=== PATIENT | female | born 1935 | race Caucasian/White ===

== ENCOUNTER 2022-07-14 10:15 | Inpatient (IN) ==
--- NOTE | 2022-07-14 10:43 | XRay Report ---
XR chest 1V portable CLINICAL HISTORY: Atypical chest pain. COMPARISON STUDY: Chest radiograph October 30, 2019. FINDINGS: Lung volumes are normal. Lungs are clear. There is no pneumothorax or pleural effusion. Car diac size is normal. Mediastinal contours are normal. There is no evidence for pulmonary edema. IMPRESSION: No acute cardiopulmonary findings. ACT 112: Negative or not required by law. Electronically signed by: Sandeep Cabezas M.D. 07/14/2022 10:41 AM
[2022-07-14 12:08] LABS: Basophils # (auto) 0.01 K/uL (0-0.2); Basophils % (auto) 0.2 %; Eosinophils # (auto) 0.05 K/uL (0-0.50); Eosinophils % (auto) 0.9 %; Hemoglobin 13.1 g/dl (12.0-16.0); Immature Granulocytes # (auto) 0.02 K/uL (0.00-0.02); Immature Granulocytes % (auto) 0.4 %; Lymphocytes # (auto) 1.57 K/uL (1.2-3.4); Lymphocytes % (auto) 27.5 %; Mean Corpuscular Hemoglobin 32.2 pg (25.0-34.0); Mean Corpuscular Hgb Conc 34.5 g/dL (32.0-36.0); Mean Corpuscular Volume 93.4 fL (80.0-100.0); Monocytes # (auto) 0.42 K/uL (0.24-0.82); Monocytes % (auto) 7.4 %; Neutrophils # (auto) 3.64 K/uL (1.4-6.5); Neutrophils % (auto) 63.6 %; Platelet Count 197 K/uL (130-400); RDW Standard Deviation 44.5 fL (36.4-46.3); Red Blood Count 4.07 M/uL (3.93-5.22); White Blood Count 5.71 K/ul (4.8-10.8)
[2022-07-14 12:19] LABS: Partial Thromboplastin Ratio 0.9; Partial Thromboplastin Time 24.9 Seconds (21.0-31.0); Prothrombin Time 10.2 Seconds (9.0-12.0)
--- NOTE | 2022-07-14 12:23 | CT Scan Report ---
CT head/brain wo con CLINICAL HISTORY: headache Technique: Contiguous axial CT images of the head were acquired from the base of the skull to the [place] matthew without intravenous contrast administration. Images were viewed in brain, subdural and bone [facility]. Automated dose lowering techniques and/or adjustment according to patient size were utilized for this exam. Comparison: None available at the time of this dictation. Findings: The ventricles, basal cisterns, and cerebral sulci are normal. There is no acute intracranial hemorrh age or evidence of acute territorial infarction. Neither mass effect, shift of the midline structures , nor abnormal extra-axial fluid collections are shown. There is opacification of some right mastoid air cells. The sinuses are clear. The orbits appear norm al. There are no acute fractures of the calvaria or scalp swelling. Impression: No acute intracranial hemorrhage, no evidence of acute territorial infarction or other acute intracra nial disease process. ACT 112: Negative or not required by law. Electronically signed by: Isaías De Anda M.D. 07/14/2022 12:22 PM
[2022-07-14] MEDS ORDERED: LABETALOL HCL IV 5 MG/ML 20ML IV STA ×2 (12:29→13:37)
--- NOTE | 2022-07-14 12:35 | Emergency Department Note ---
Impression & Plan Hypertensive emergency, Lacunar stroke, Carotid stenosis, right, Cerebrovascular disease ED Provider Note NAME: JUDE PATEL AGE: 86 SEX: F : 1935 ARRIVES VIA: Walk-In INFORMANT: Patient, the patient's family member ED PROVIDER(S): Rosendo Lawson DO CHIEF COMPLAINT: Headache HPI: The patient is an 86-year-old female who presented to the emergency department at the request of her primary care physician for an evaluation of headache and dizziness. The patient states she started noticing dizziness and near syncope at the beginning of the week. She states around Sunday she started having the symptoms. She is also noticed very severe headache. She describes the headache as a frontal as well as an occipital headache. The patient denies having any fever. She said no trauma. She denies having any neck pain. ROS: See above HPI for pertinent positives & negatives. A total of 10 systems reviewed and were otherwise negative. PAST MEDICAL HISTORY: See Below PAST SURGICAL HISTORY: See Below FAMILY HISTORY: See Below SOCIAL HISTORY: See Below HOME MEDICATIONS: See Below ALLERGIES: See Below VITALS: See Below PHYSICAL EXAMINATION: GENERAL: Patient is awake alert in no acute distress patient is resting comfortably and showing no signs of anxiety EYES: The conjunctivae are clear. The pupils are round and reactive. EARS, NOSE, MOUTH AND THROAT: The nose is without any evidence of any deformity. NECK: The neck is nontender and supple. RESPIRATORY: Normal respiratory effort is noted there is no evidence of wheezing rhonchi or rales CARDIOVASCULAR: Regular rate and rhythm noted there no murmurs rubs or gallops normal S1 normal S2. GASTROINTESTINAL: The abdomen is soft. Abdomen is nontender. MUSCULOSKELETAL/EXTREMITIES: There is no evidence of gross deformity full range of motion is noted in the hips and shoulders. SKIN: There is no obvious evidence of any rash. There are no petechiae, pallor or cyanosis noted. NEUROLOGIC: Patient is awake alert and oriented x3. Strength is symmetric. Patient is able to hold each leg off the bed for 5 seconds. MEDICAL DECISION MAKING: The patient is an 86-year-old female who presented to the emergency department for an evaluation of strokelike symptoms and headache. The patient's had ongoi ng symptoms since the beginning the week. She had no focal neurologic deficits but she did complain of fogginess and not feeling well. The patient's blood pressure was treated in the emergency department with IV antihypertensives. She was reevaluated multiple times. I discussed the patient's laboratory and radiographic studies with her. She was found to have significant cerebrovascular disease. There is an area that could be consistent with vertebral artery dissection. Given the amount of cerebral vascular disease I do not feel the patient would be a good candidate for outpatient management. For this reason I discussed her case with the on-call [facility]. They have agreed to evaluate the patient in the emergency department for further management and disposition. Triage Nursing notes reviewed. Prior medical records reviewed Vital Signs: reviewed and remarkable for elevated blood pressure. Differential diagnosis: Benign positional vertigo, dehydration, hypovolemia, anemia, tumor, infection, hypoglycemia, electrolyte abnormalities, cardiac sources, intracerebral event, toxicologic, neurologic, as well as other pathologies. ER treatment provided: See below Diagnostics interpreted by me: ECG: EKG was obtained in the emergency department. My interpretation is normal sinus rhythm at 74 bpm. Left bundle branch block pattern was noted. There were no PVCs. This was compared to a tracing from October 30, 2019. No changes were noted. Cardiac Monitoring: An order was placed for continuous cardiac monitoring. The monitor shows a rate of 65 bpm with sinus rhythm. Laboratory studies: As stated above and show below. Imaging studies: See below. Radiographic imaging was reviewed by myself Consultation(s): I discussed this case with Sadia who is on-call for the [facility]. They are requesting that I discussed the case with neurology. I discussed this case with Dr. Dexter who is on-call for neurology. He does recommend further inpatient management. ED COURSE: Procedures: none Critical Care: I have personally spent greater than 45 minutes of critical care time in the direct management of this patient. This includes bedside care, interpretation of diagnostic studies, and testing, discussion with consultants, patient, and family members, and other required patient management activities. This 45 minutes is in excess of all separately billable procedures. Past Med/Surg History Medical History Hyperlipidemia Hypertension Macular degeneration Migraine Osteoarthritis Trigeminal neuralgia Surgical History History of cataract surgery RT History of colonoscopy History of hysterectomy History of tooth extraction Family History Mother Family history of diabetes mellitus Brother Family history of diabetes mellitus Family hx colonic polyps Social History Smoking Status: Never smoker Cigarettes Per Day: QUIT IN "MY 40'S"; Second Hand Exposure: No; Hx Alcohol Use: Yes Alcohol type: wine Hx Substance Use: No Preferred Language: Montserratian Communication Ability: Effective Manager Managing Required: No Beliefs That Will Affect Care: None Current Living Situation: Spouse Feels Safe at Home: Yes Assistive Devices: Cane and Glasses Allergies Allergies Allergy/AdvReac Type Severity Reaction Status Date / Time amoxicillin [From Augmentin] Allergy Intermediate HIVES/PASSED Verified 07/14/22 14:59 OUT cephalexin [From Keflex] Allergy Intermediate Hives Verified 07/14/22 14:59 clavulanic acid Allergy Intermediate HIVES/PASSED Verified 07/14/22 14:59 [From Augmentin] OUT Penicillins Allergy Intermediate Hives Verified 07/14/22 14:59 Home Meds Home Medications Medication Instructions Recorded Confirmed carbamazepine 200 mg tablet 200 mg PO BID 04/15/18 07/14/22 fluticasone propionate 50 2 spray intranasal DAILY PRN 04/15/18 07/14/22 mcg/actuation nasal Congestion spray,suspension (Flonase Allergy Relief) losartan 50 mg tablet 50 mg PO HS 07/14/22 07/14/22 Results & Data (ED) Vital Signs Vital Signs - 24 hr 07/14/22 10:18 07/14/22 12:26 07/14/22 12:26 Temperature 36.9 C Temperature Source Oral Pulse Rate 86 84 Pulse Rate [Apical] 87 Pulse Rate from SpO2 Sensor Pulse Rhythm Regular Pulse Rhythm [Apical] Regular Respiratory Rate 18 16 16 Respiratory Effort / Characteristics Non-Labored Spontaneous Respiratory Depth Normal Respiratory Pattern Regular Blood Pressure 190/108 H Blood Pressure [Right Arm] 242/103 H Blood Pressure Mean 135 Blood Pressure Mean [Right Arm] 149 Pulse Oximetry 95 98 96 Oxygen Delivery Method Room Air Room Air Room Air Sepsis Recent Fever Within 48 Hours No Sepsis New/Unexplained Change in Mental Status No Sepsis Action Taken by Nursing No Action Required 07/14/22 12:49 07/14/22 12:40 07/14/22 13:02 Temperature Temperature Source Pulse Rate 70 74 Pulse Rate [Apical] Pulse Rate from SpO2 Sensor 71 Pulse Rhythm Pulse Rhythm [Apical] Respiratory Rate 17 16 Respiratory Effort / Characteristics Respiratory Depth Respiratory Pattern Blood Pressure Blood Pressure [Right Arm] 228/86 H Blood Pressure Mean Blood Pressure Mean [Right Arm] 133 Pulse Oximetry 97 Oxygen Delivery Method Room Air Sepsis Recent Fever Within 48 Hours Sepsis New/Unexplained Change in Mental Status Sepsis Action Taken by Nursing 07/14/22 13:15 07/14/22 13:15 07/14/22 13:30 Temperature Temperature Source Pulse Rate 70 Pulse Rate [Apical] Pulse Rate from SpO2 Sensor 70 Pulse Rhythm Pulse Rhythm [Apical] Respiratory Rate 15 Respiratory Effort / Characteristics Respiratory Depth Respiratory Pattern Blood Pressure 210/103 H 208/94 H Blood Pressure [Right Arm] Blood Pressure Mean 138 132 Blood Pressure Mean [Right Arm] Pulse Oximetry 91 Oxygen Delivery Method Sepsis Recent Fever Within 48 Hours Sepsis New/Unexplained Change in Mental Status Sepsis Action Taken by Nursing 07/14/22 13:30 07/14/22 14:28 07/14/22 14:30 Temperature Temperature Source Pulse Rate 65 67 Pulse Rate [Apical] Pulse Rate from SpO2 Sensor 66 Pulse Rhythm Pulse Rhythm [Apical] Respiratory Rate 26 H Respiratory Effort / Characteristics Respiratory Depth Respiratory Pattern Blood Pressure 219/93 H Blood Pressure [Right Arm] Blood Pressure Mean 135 Blood Pressure Mean [Right Arm] Pulse Oximetry 93 Oxygen Delivery Method Sepsis Recent Fever Within 48 Hours Sepsis New/Unexplained Change in Mental Status Sepsis Action Taken by Nursing 07/14/22 14:30 07/14/22 15:00 07/14/22 15:04 Temperature Temperature Source Pulse Rate 67 65 Pulse Rate [Apical] Pulse Rate from SpO2 Sensor Pulse Rhythm Pulse Rhythm [Apical] Respiratory Rate 16 21 Respiratory Effort / Characteristics Respiratory Depth Respiratory Pattern Blood Pressure 213/92 H Blood Pressure [Right Arm] Blood Pressure Mean 132 Blood Pressure Mean [Right Arm] Pulse Oximetry Oxygen Delivery Method Sepsis Recent Fever Within 48 Hours Sepsis New/Unexplained Change in Mental Status Sepsis Action Taken by Nursing 07/14/22 15:04 Temperature Temperature Source Pulse Rate 65 Pulse Rate [Apical] Pulse Rate from SpO2 Sensor Pulse Rhythm Pulse Rhythm [Apical] Respiratory Rate 22 Respiratory Effort / Characteristics Respiratory Depth Respiratory Pattern Blood Pressure Blood Pressure [Right Arm] Blood Pressure Mean Blood Pressure Mean [Right Arm] Pulse Oximetry Oxygen Delivery Method Sepsis Recent Fever Within 48 Hours Sepsis New/Unexplained Change in Mental Status Sepsis Action Taken by [facility] Medications Current Medication List: was personally reviewed by me Laboratory Data Attestation: I reviewed the patient's lab results. 07/14/22 11:51 07/14/22 11:51 Lab Results 07/14/22 07/14/22 07/14/22 Range/Units 11:51 11:51 11:51 WBC 5.71 (4.8-10.8) K/ul RBC 4.07 (3.93-5.22) M/uL Hgb 13.1 (12.0-16.0) g/dl Hct 38.0 (34.1-44.9) % MCV 93.4 (80.0-100.0) fL MCH 32.2 (25.0-34.0) pg MCHC 34.5 (32.0-36.0) g/dL RDW Std Deviation 44.5 (36.4-46.3) fL RDW Coeff of Quan 13.0 (11.5-14.5) % Plt Count 197 (130-400) K/uL MPV 9.0 L (9.4-12.3) fL Immature Gran % (Auto) 0.4 % Neut % (Auto) 63.6 % Lymph % (Auto) 27.5 % Jones % (Auto) 7.4 % Eos % (Auto) 0.9 % Baso % (Auto) 0.2 % Neut # (Auto) 3.64 (1.4-6.5) K/uL Lymph # (Auto) 1.57 (1.2-3.4) K/uL Jones # (Auto) 0.42 (0.24-0.82) K/uL Eos # (Auto) 0.05 (0-0.50) K/uL Baso # (Auto) 0.01 (0-0.2) K/uL Immature Gran # (Auto) 0.02 (0.00-0.02) K/uL ESR (0-30) mm/hr PT 10.2 (9.0-12.0) Seconds INR 1.0 (0.9-1.1) APTT 24.9 (21.0-31.0) Seconds PTT Ratio 0.9 Sodium 139 (136-145) mmol/L Potassium 3.8 (3.5-5.1) mmol/L Chloride 103 (98-107) mmol/L Carbon Dioxide 28 (21-32) mmol/L Anion Gap 8 (3-11) BUN 17 (6-23) mg/dl Creatinine 0.74 (0.6-1.2) mg/dl Est Cr Clr Drug Dosing 46.8 ml/min Est GFR ( Amer) 84.4 ml/min Est GFR (Non-Af Amer) 72.8 ml/min BUN/Creatinine Ratio 23.0 H (10-20) Glucose 110 H (70-99(Fasting)) mg/dl Calcium 9.6 (8.5-10.1) mg/dl Magnesium 2.2 (1.7-2.4) mg/dl Total Bilirubin 0.4 (0.2-1.0) mg/dl AST 18 (13-39) U/L ALT 12 (7-52) U/L Alkaline Phosphatase 84 (34-104) U/L Troponin I High Sens 5.9 (0-14) pg/ml C-Reactive Protein (0-0.5) mg/dl Total Protein 7.3 (6.0-8.3) gm/dl Albumin 4.4 (3.4-5.0) gm/dl Globulin 2.9 (2.5-4.0) gm/dl Albumin/Globulin Ratio 1.5 (0.9-2) TSH (0.300-4.500) uIu/ml Urine Color Urine Appearance (Clear) Urine pH (4.5-7.5) Ur Specific [place] (1.000-1.030) Urine Protein (Negative) Urine Glucose (UA) (Negative) Urine Ketones (Negative) Urine Blood (Negative) Urine Nitrite (Negative) Urine Bilirubin (Negative) Urine Urobilinogen (Negative) Ur Leukocyte Esterase (Negative) SARS-CoV-2, RNA, NAAT (NEGATIVE) 07/14/22 07/14/22 07/14/22 Range/Units 11:51 11:51 11:51 WBC (4.8-10.8) K/ul RBC (3.93-5.22) M/uL Hgb (12.0-16.0) g/dl Hct (34.1-44.9) % MCV (80.0-100.0) fL MCH (25.0-34.0) pg MCHC (32.0-36.0) g/dL RDW Std Deviation (36.4-46.3) fL RDW Coeff of Quan (11.5-14.5) % Plt Count (130-400) K/uL MPV (9.4-12.3) fL Immature Gran % (Auto) % Neut % (Auto) % Lymph % (Auto) % Jones % (Auto) % Eos % (Auto) % Baso % (Auto) % Neut # (Auto) (1.4-6.5) K/uL Lymph # (Auto) (1.2-3.4) K/uL Jones # (Auto) (0.24-0.82) K/uL Eos # (Auto) (0-0.50) K/uL Baso # (Auto) (0-0.2) K/uL Immature Gran # (Auto) (0.00-0.02) K/uL ESR 18 (0-30) mm/hr PT (9.0-12.0) Seconds INR (0.9-1.1) APTT (21.0-31.0) Seconds PTT Ratio Sodium (136-145) mmol/L Potassium (3.5-5.1) mmol/L Chloride (98-107) mmol/L Carbon Dioxide (21-32) mmol/L Anion Gap (3-11) BUN (6-23) mg/dl Creatinine (0.6-1.2) mg/dl Est Cr Clr Drug Dosing ml/min Est GFR ( Amer) ml/min Est GFR (Non-Af Amer) ml/min BUN/Creatinine Ratio (10-20) Glucose (70-99(Fasting)) mg/dl Calcium (8.5-10.1) mg/dl Magnesium (1.7-2.4) mg/dl Total Bilirubin (0.2-1.0) mg/dl AST (13-39) U/L ALT (7-52) U/L Alkaline Phosphatase (34-104) U/L Troponin I High Sens (0-14) pg/ml C-Reactive Protein < 0.50 (0-0.5) mg/dl Total Protein (6.0-8.3) gm/dl Albumin (3.4-5.0) gm/dl Globulin (2.5-4.0) gm/dl Albumin/Globulin Ratio (0.9-2) TSH 1.746 (0.300-4.500) uIu/ml Urine Color Urine Appearance (Clear) Urine pH (4.5-7.5) Ur Specific [place] (1.000-1.030) Urine Protein (Negative) Urine Glucose (UA) (Negative) Urine Ketones (Negative) Urine Blood (Negative) Urine Nitrite (Negative) Urine Bilirubin (Negative) Urine Urobilinogen (Negative) Ur Leukocyte Esterase (Negative) SARS-CoV-2, RNA, NAAT (NEGATIVE) 07/14/22 07/14/22 Range/Units 14:20 Unknown WBC (4.8-10.8) K/ul RBC (3.93-5.22) M/uL Hgb (12.0-16.0) g/dl Hct (34.1-44.9) % MCV (80.0-100.0) fL MCH (25.0-34.0) pg MCHC (32.0-36.0) g/dL RDW Std Deviation (36.4-46.3) fL RDW Coeff of Quan (11.5-14.5) % Plt Count (130-400) K/uL MPV (9.4-12.3) fL Immature Gran % (Auto) % Neut % (Auto) % Lymph % (Auto) % Jones % (Auto) % Eos % (Auto) % Baso % (Auto) % Neut # (Auto) (1.4-6.5) K/uL Lymph # (Auto) (1.2-3.4) K/uL Jones # (Auto) (0.24-0.82) K/uL Eos # (Auto) (0-0.50) K/uL Baso # (Auto) (0-0.2) K/uL Immature Gran # (Auto) (0.00-0.02) K/uL ESR (0-30) mm/hr PT (9.0-12.0) Seconds INR (0.9-1.1) APTT (21.0-31.0) Seconds PTT Ratio Sodium (136-145) mmol/L Potassium (3.5-5.1) mmol/L Chloride (98-107) mmol/L Carbon Dioxide (21-32) mmol/L Anion Gap (3-11) BUN (6-23) mg/dl Creatinine (0.6-1.2) mg/dl Est Cr Clr Drug Dosing ml/min Est GFR ( Amer) ml/min Est GFR (Non-Af Amer) ml/min BUN/Creatinine Ratio (10-20) Glucose (70-99(Fasting)) mg/dl Calcium (8.5-10.1) mg/dl Magnesium (1.7-2.4) mg/dl Total Bilirubin (0.2-1.0) mg/dl AST (13-39) U/L ALT (7-52) U/L Alkaline Phosphatase (34-104) U/L Troponin I High Sens (0-14) pg/ml C-Reactive Protein (0-0.5) mg/dl Total Protein (6.0-8.3) gm/dl Albumin (3.4-5.0) gm/dl Globulin (2.5-4.0) gm/dl Albumin/Globulin Ratio (0.9-2) TSH (0.300-4.500) uIu/ml Urine Color Yellow Urine Appearance Clear (Clear) Urine pH 7.0 (4.5-7.5) Ur Specific [place] 1.036 H (1.000-1.030) Urine Protein Negative (Negative) Urine Glucose (UA) Negative (Negative) Urine Ketones Negative (Negative) Urine Blood Negative (Negative) Urine Nitrite Negative (Negative) Urine Bilirubin Negative (Negative) Urine Urobilinogen Negative (Negative) Ur Leukocyte Esterase Negative (Negative) SARS-CoV-2, RNA, NAAT NEGATIVE (NEGATIVE) Administered Medications Discontinued Medications Gadobutrol (Gadobutrol 65ml Vial) 6 ml IV ONCE ONE Stop: 07/14/22 16:00 Last Admin: 07/14/22 16:00 Dose: 6 ml Documented By: DARI Hydralazine HCl (Hydralazine Hcl 20 Mg/Ml Vial) 10 mg IV NOW STA Stop: 07/14/22 14:58 Last Admin: 07/14/22 15:20 Dose: 10 mg Documented By: ALEXANDRO Ioversol (Optiray 320 500ml) 115 ml IV ONCE ONE Stop: 07/14/22 12:56 Last Admin: 07/14/22 12:58 Dose: 115 ml Documented By: INDIO Labetalol HCl (Labetalol Hcl Iv 5 Mg/Ml 20ml) 10 mg IV NOW STA Stop: 07/14/22 12:30 Last Admin: 07/14/22 12:47 Dose: 10 mg Documented By: [id number] Co-signed By: GRAHAM Labetalol HCl (Labetalol Hcl Iv 5 Mg/Ml 20ml) 10 mg IV NOW STA Stop: 07/14/22 13:38 Last Admin: 07/14/22 13:45 Dose: 10 mg Documented By: [id number] Co-signed By: MOISES Losartan Potassium (Losartan Potassium 50 Mg Tab) 50 mg PO ONE ONE Stop: 07/14/22 14:59 Last Admin: 07/14/22 15:20 Dose: 50 mg Documented By: KN Imaging Data Radiologist's Impression: Chest X-Ray 07/14/22 10:29 XR chest 1V portable CLINICAL HISTORY: Atypical chest pain. COMPARISON STUDY: Chest radiograph October 30, 2019. FINDINGS: Lung volumes are normal. Lungs are clear. There is no pneumothorax or pleural effusion. Cardiac size is normal. Mediastinal contours are normal. There is no evidence for pulmonary edema. IMPRESSION: No acute cardiopulmonary findings. ACT 112: Negative or not required by law. Electronically signed by: Sandeep Cabezas M.D. 07/14/2022 10:[address] 07/14/22 10:29 CT head/brain wo con CLINICAL HISTORY: headache Technique: Contiguous axial CT images of the head were acquired from the base of the skull to the vertex without intravenous contrast administration. Images were viewed in brain, subdural and bone windows. Automated dose lowering techniques and/or adjustment according to patient size were utilized for this exam. Comparison: None available at the time of this dictation. Findings: The ventricles, basal cisterns, and cerebral sulci are normal. There is no acute intracranial hemorrhage or evidence of acute territorial infarction. Neither mass effect, shift of the midline structures, nor abnormal extra-axial fluid collections are shown. There is opacification of some right mastoid air cells. The sinuses are clear. The orbits appear normal. There are no acute fractures of the calvaria or scalp swelling. Impression: No acute intracranial hemorrhage, no evidence of acute territorial infarction or other acute intracranial disease process. ACT 112: Negative or not required by law. Electronically signed by: Isaías De Anda M.D. 07/14/2022 12:22 PM Head CTA 07/14/22 12:29 CT angio neck with con, CT angio head w con CLINICAL HISTORY: 86 years-old Female with Strokelike symptoms. Acute headache with strokelike symptoms COMPARISON STUDY: Head CT of same day TECHNIQUE: Following the IV administration of 115 mL of Optiray, CT angiogram of the head and neck was performed from the aortic arch to the skull apex. Images are reviewed in the axial, sagittal, and coronal planes. 3-D MIPS images are created and assessed. IV contrast was administered without complication. All measurements were calculated based on NASCET criteria. A dose lowering technique was utilized adhering to the principles of ALARA. CT DOSE: 375.06 mGy.cm FINDINGS: Involutional changes with chronic microvascular ischemic disease. Subcentimeter hypodense focus of the right caudate nucleus. Senescent calcifications of the basal ganglia. There are at least 2 ill-defined hypodense areas noted within the left cerebellar hemisphere measuring up to 1.4 cm. Moderate sized right mastoid effusion. Left mastoid air cells and paranasal sinuses are generally clear. Hyperostosis frontalis interna. Prior bilateral lens repair. When apices are clear without pneumothorax. Subcentimeter thyroid nodules and calcifications. Unremarkable soft tissues. Multilevel degenerative changes of the cervical spine. Moderate atherosclerosis of the imaged thoracic aorta. Patency of the nominate and imaged subclavian arteries. Atherosclerosis of the common carotid arteries which are patent. Mild to moderate atherosclerotic plaque of the left carotid bulb and proximal left ICA resulting in less than 50% stenosis. Moderate to extensive mixed plaque of the right carotid bulb and proximal right ICA results in approximately 75% stenosis. The internal carotid arteries are otherwise patent. Atherosclerotic plaque cavernous, clinoid and supraclinoid segments of the internal carotid arteries results in narrowing of to 50%. Mild to moderate multifocal stenosis throughout the anterior and middle cerebral arteries. Codominant vertebral arteries. Multifocal luminal narrowing involving the V1 and V2 segments of the vertebral arteries measures up to approximately 50% irregularity with high-grade stenosis involves the distal V2 and V3 segments of the left vertebral artery with occlusion involving the distal V3 and V4 segments. There is minimal reconstitution of flow noted within the left PICA. High-grade stenosis of the distal V4 segment with multifocal high-grade stenosis of the basilar artery. Multifocal luminal narrowing of the basilar arteries is predominantly mild to moderate. Cerebral venous sinuses appear patent. There is no abnormal intracranial enhancement identified. IMPRESSION: 1. Small age-indeterminate lacunar infarcts of the left cerebellar hemisphere measure up to approximately 1.4 cm. Additional age-indeterminate lacunar infarct of the right caudate nucleus, favored to be chronic. 2. Age-indeterminate occlusion of the distal left vertebral artery with areas of reconstitution noted within the left PICA. Findings are likely secondary to athe rosclerotic vascular disease. An underlying dissection would be difficult to exclude. 3. 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 4. High-grade stenosis within the proximal right ICA. 5. Mild to moderate stenosis throughout the middle and posterior cerebral arteries. ACT 112: Negative or not required by law. The above report was generated using voice recognition software. It may contain grammatical, syntax or spelling errors. Electronically signed by: Aiden Godinez M.D. 07/14/2022 1:21 PM Neck CTA 07/14/22 12:29 CT angio neck with con, CT angio head w con CLINICAL HISTORY: 86 years-old Female with Strokelike symptoms. Acute headache with strokelike symptoms COMPARISON STUDY: Head CT of same day TECHNIQUE: Following the IV administration of 115 mL of Optiray, CT angiogram of the head and neck was performed from the aortic arch to the skull apex. Images are reviewed in the axial, sagittal, and coronal planes. 3-D MIPS images are created and assessed. IV contrast was administered without complication. All measurements were calculated based on NASCET criteria. A dose lowering technique was utilized adhering to the principles of ALARA. CT DOSE: 375.06 mGy.cm FINDINGS: Involutional changes with chronic microvascular ischemic disease. Subcentimeter hypodense focus of the right caudate nucleus. Senescent calcifications of the basal ganglia. There are at least 2 ill-defined hypodense areas noted within the left cerebellar hemisphere measuring up to 1.4 cm. Moderate sized right mastoid effusion. Left mastoid air cells and paranasal sinuses are generally clear. Hyperostosis frontalis interna. Prior bilateral lens repair. When apices are clear without pneumothorax. Subcentimeter thyroid nodules and calcifications. Unremarkable soft tissues. Multilevel degenerative changes of the cervical spine. Moderate atherosclerosis of the imaged thoracic aorta. Patency of the nominate and imaged subclavian arteries. Atherosclerosis of the common carotid arteries which are patent. Mild to moderate atherosclerotic plaque of the left carotid bulb and proximal left ICA resulting in less than 50% stenosis. Moderate to extensive mixed plaque of the right carotid bulb and proximal right ICA results in approximately 75% stenosis. The internal carotid arteries are otherwise pat ent. Atherosclerotic plaque cavernous, clinoid and supraclinoid segments of the internal carotid arteries results in narrowing of to 50%. Mild to moderate multifocal stenosis throughout the anterior and middle cerebral arteries. Codominant vertebral arteries. Multifocal luminal narrowing involving the V1 and V2 segments of the vertebral arteries measures up to approximately 50% irregularity with high-grade stenosis involves the distal V2 and V3 segments of the left vertebral artery with occlusion involving the distal V3 and V4 segments. There is minimal reconstitution of flow noted within the left PICA. High-grade stenosis of the distal V4 segment with multifocal high-grade stenosis of the basilar artery. Multifocal luminal narrowing of the basilar arteries is predominantly mild to moderate. Cerebral venous sinuses appear patent. There is no abnormal intracranial enhancement identified. IMPRESSION: 1. Small age-indeterminate lacunar infarcts of the left cerebellar hemisphere measure up to approximately 1.4 cm. Additional age-indeterminate lacunar infarct of the right caudate nucleus, favored to be chronic. 2. Age-indeterminate occlusion of the distal left vertebral artery with areas of reconstitution noted within the left PICA. Findings are likely secondary to atherosclerotic vascular disease. An underlying dissection would be difficult to exclude. 3. 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 4. High-grade stenosis within the proximal right ICA. 5. Mild to moderate stenosis throughout the middle and posterior cerebral arteries. ACT 112: Negative or not required by law. The above report was generated using voice recognition software. It may contain grammatical, syntax or spelling errors. Electronically signed by: Aiden Godinez M.D. 07/14/2022 1:21 PM Discharge Plan Visit Data Chief Complaint: Referred by Doctor Stated Complaint: headache, dizzy, tia symptoms, referd by dr ED Provider: Rosendo Lawson Discharge Problem: Hypertensive emergency, Lacunar stroke, Carotid stenosis, right, Cerebrovascular disease Patient Disposition: Being Evaluated by Hospitalist Forms Stand Alone Forms: My [facility] [place] Prescriptions Prescriptions: No Action carbamazepine 200 mg Tablet 200 mg PO BID Rx Instructions: PER EXT MED HX TID, PER PT "ONLY BID". fluticasone propionate [Flonase Allergy Relief] 50 mcg/actuation [place],Suspension 2 spray INTRANASAL DAILY PRN (Reason: Congestion) losartan 50 mg tablet 50 mg PO HS Referrals Referrals: Eddi Swan MD [Physician] -
[2022-07-14 12:38] LABS: Albumin Globulin Ratio 1.5 (0.9-2); Albumin Level 4.4 gm/dl (3.4-5.0); Bilirubin,Total 0.4 mg/dl (0.2-1.0); Calcium 9.6 mg/dl (8.5-10.1); Creatinine Clr Calc Pharmacy 46.8 ml/min; Est GFR (African American) 84.4 ml/min; Est GFR (Non-African American) 72.8 ml/min; Globulin 2.9 gm/dl (2.5-4.0); Magnesium 2.2 mg/dl (1.7-2.4); Potassium 3.8 mmol/L (3.5-5.1); Total Protein 7.3 gm/dl (6.0-8.3)
[2022-07-14 12:54] LABS: Troponin I High Sensitivity 5.9 pg/ml (0-14)
[2022-07-14] MEDS ORDERED: OPTIRAY 320 500ml IV ONE (12:55)
--- NOTE | 2022-07-14 13:22 | CT Scan Report ---
CT angio neck with con, CT angio head w con CLINICAL HISTORY: 86 years-old Female with Strokelike symptoms. Acute headache with strokelike sym ptoms COMPARISON STUDY: Head CT of same day TECHNIQUE: Following the IV administration of 115 mL of Optiray, CT angiogram of the head and neck wa s performed from the aortic arch to the skull apex. Images are reviewed in the axial, sagittal, and c oronal planes. 3-D MIPS images are created and assessed. IV contrast was administered without complic ation. All measurements were calculated based on NASCET criteria. A dose lowering technique was util ized adhering to the principles of ALARA. CT DOSE: 375.06 mGy.cm FINDINGS: Involutional changes with chronic microvascular ischemic disease. Subcentimeter hypodense focus of th e right caudate nucleus. Senescent calcifications of the basal ganglia. There are at least 2 ill-defi fawn hypodense areas noted within the left cerebellar hemisphere measuring up to 1.4 cm. Moderate sized right mastoid effusion. Left mastoid air cells and paranasal sinuses are generally pat ar. Hyperostosis frontalis interna. Prior bilateral lens repair. When apices are clear without pneumo thorax. Subcentimeter thyroid nodules and calcifications. Unremarkable soft tissues. Multilevel degen erative changes of the cervical spine. Moderate atherosclerosis of the imaged thoracic aorta. Patency of the nominate and imaged subclavian arteries. Atherosclerosis of the common carotid arteries which are patent. Mild to moderate atheroscl erotic plaque of the left carotid bulb and proximal left ICA resulting in less than 50% stenosis. Mod erate to extensive mixed plaque of the right carotid bulb and proximal right ICA results in approxima tely 75% stenosis. The internal carotid arteries are otherwise patent. Atherosclerotic plaque caverno us, clinoid and supraclinoid segments of the internal carotid arteries results in narrowing of to 50% . Mild to moderate multifocal stenosis throughout the anterior and middle cerebral arteries. Codomina nt vertebral arteries. Multifocal luminal narrowing involving the V1 and V2 segments of the vertebral arteries measures up to approximately 50% irregularity with high-grade stenosis involves the distal V2 and V3 segments of the left vertebral artery with occlusion involving the distal V3 and V4 segment s. There is minimal reconstitution of flow noted within the left PICA. High-grade stenosis of the dis ninfa V4 segment with multifocal high-grade stenosis of the basilar artery. Multifocal luminal narrowin g of the basilar arteries is predominantly mild to moderate. Cerebral venous sinuses appear patent. T here is no abnormal intracranial enhancement identified. IMPRESSION: 1. Small age-indeterminate lacunar infarcts of the left cerebellar hemisphere measure up to approxima tely 1.4 cm. Additional age-indeterminate lacunar infarct of the right caudate nucleus, favored to be chronic. 2. Age-indeterminate occlusion of the distal left vertebral artery with areas of reconstitution noted within the left PICA. Findings are likely secondary to atherosclerotic vascular disease. An underlyi ng dissection would be difficult to exclude. 3. 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 4. High-grade stenosis within the proximal right ICA. 5. Mild to moderate stenosis throughout the middle and posterior cerebral arteries. ACT 112: Negative or not required by law. The above report was generated using voice recognition software. It may contain grammatical, syntax o r spelling errors. Electronically signed by: Aiden Godinez M.D. 07/14/2022 1:21 PM
--- NOTE | 2022-07-14 14:28 | Electrocardiogram Report ---
Test Reason : Blood Pressure : / mmHG Vent. Rate : 074 BPM Atrial Rate : 074 BPM P-R Int : 168 ms QRS Dur : 140 ms QT Int : 426 ms P-R-T Axes : 062 -40 104 degrees QTc Int : 472 ms Poor data quality, interpretation may be adversely affected Normal sinus rhythm Possible Left atrial enlargement Left axis deviation Left bundle branch block Abnormal ECG When compared with ECG of 30-OCT-2019 13:22, No significant change was found Confirmed by Julian Maloney ([id number]) on 07/14/2022 2:27:50 PM Referred By: Confirmed By:Julian Maloney
[2022-07-14 14:48] LABS: Appearance Urine Clear (Clear); Bilirubin Urine Negative (Negative); Blood Urine Negative (Negative); Color Urine Yellow; Glucose Urine UA Negative (Negative); Ketones Urine Negative (Negative); Leukocyte Esterase Urine Negative (Negative); Nitrite Urine Negative (Negative); Protein Urine Negative (Negative); Specific Gravity Urine 1.036 (1.000-1.030); Urobilinogen Urine Negative (Negative)
[2022-07-14] MEDS ORDERED: hydrALAZINE HCL 20 MG/ML VIAL IV STA ×2 (14:57→16:29)
[2022-07-14] MEDS ORDERED: LOSARTAN POTASSIUM 50 MG TAB PO ONE (14:58)
--- NOTE | 2022-07-14 15:47 | History & Physical Report ---
Date of Service July 14, 2022 Assessment & Plan (1) Hypertensive emergency: (2) Lacunar stroke: (3) Carotid stenosis, right: Plan: Admit to PCU Patient presenting from home with reports of headache, dizziness, nausea, difficulty ambulating x 6 days In the ED, patient was found to be significantly hypertensive with BP 242/103 Patient received labetalol 10 mg IV x 2 doses with minimal improvement. Will give hydralazine 10 mg IV and losartan 50 mg p.o. (patient's home dose) --> some improvement in BP, will give another dose of hydralazine and give amlodipine 5mg now. Resume Losartan 50mg and Amlodipine 5mg tomorrow AM. PRN hydralazine SBP > 195 Head/Neck CTA: 1. Small age-indeterminate lacunar infarcts of the left cerebellar hemisphere measure up to approximately 1.4 cm. Additional age-indeterminate lacunar infarct of the right caudate nucleus, favored to be chronic. 2. Age-indeterminate occlusion of the distal left vertebral artery with areas of reconstitution noted within the left PICA. Findings are likely secondary to atherosclerotic vascular disease. An underlying dissection would be difficult to exclude. 3. 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 4. High-grade stenosis within the proximal right ICA. 5. Mild to moderate stenosis throughout the middle and posterior cerebral arteries. Brain MRI/MRA Echo Neurology consult -Case discussed with Dr. Dexter via tiger text Start Plavix 75mg, ASA 81mg, atorvastatin 40mg Consult vascular re: high grade proximal right ICA stenosis (4) Trigeminal neuralgia: Plan: Continue carbamazepine DVT PROPHYLAXIS SCDs I spent a total of 60 minutes coordinating, documenting, and providing care for this patient excluding time spent in the performance of separately billed services. This included personally reviewing all current laboratories and imaging studies, medication reconciliation, outpatient chart review, and discussion with specialists. History of Present Illness Chief Complaint: Headache, nausea, dizziness, difficulty ambulating Primary Care Provider: Sander Dumont MD 86-year-old female with PMH HTN, dyslipidemia, carotid stenosis, LBBB, trigeminal neuralgia, and other problems listed below who presents to the ED for evaluation of headache, nausea, dizziness, difficulty ambulating. Patient reports that 6 days ago, she was sitting at her computer when she had sudden on set of dizziness and generalized weakness. Patient reports that she went to bed and fell asleep and whenever she woke up the next morning, the dizziness and generalized weakness persisted. The following day, patient also reports she developed a severe frontal headache that radiated around to the back of her head. She also has had associated nausea. Patient also reports some difficulty walking however no falls. Patient has been taking intermittent Advil for the headache. This morning, she took 2 full dose aspirin. Patient denies unilateral weakness, numbness, tingling. No facial droop, slurred speech, difficulty swallowing. Denies double and blurred vision. No chest pain or shortness of breath. Denies syncopal event. No other recent illnesses, fevers, chills. No abdominal pain, vomiting, diarrhea. Denies urinary symptoms. In the ED, patient is found to be significantly hypertensive with BP 242/103. Head and neck CTA shows small age-indeterminate lacunar infarcts of the left cerebellar hemisphere measure up to approximately 1.4 cm, Age-indeterminate occlusion of the distal left vertebral artery with areas of reconstitution noted within the left PICA. Findings are likely secondary to atherosclerotic vascular disease. An underlying dissection would be difficult to exclude. 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 High-grade stenosis within the proximal right ICA. Mild to moderate stenosis throughout the middle and posterior cerebral arteries. Patient was given IV labetalol 10 mg x 2 doses with minimal improvement in BP. Allergies Allergy/AdvReac Type Severity Reaction Status Date / Time amoxicillin [From Augmentin] Allergy Intermediate HIVES/PASSED Verified 07/14/22 14:59 OUT cephalexin [From Keflex] Allergy Intermediate Hives Verified 07/14/22 14:59 clavulanic acid Allergy Intermediate HIVES/PASSED Verified 07/14/22 14:59 [From Augmentin] OUT Penicillins Allergy Intermediate Hives Verified 07/14/22 14:59 Home Medications Medication Instructions Recorded Confirmed Type carbamazepine 200 mg tablet 200 mg PO BID 04/15/18 07/14/22 History fluticasone propionate 50 2 spray intranasal DAILY PRN 04/15/18 07/14/22 History mcg/actuation nasal Congestion spray,suspension (Flonase Allergy Relief) losartan 50 mg tablet 50 mg PO HS 07/14/22 07/14/22 History Past Med/Surg History Medical History Hyperlipidemia Hypertension Macular degeneration Migraine Osteoarthritis Trigeminal neuralgia Surgical History History of cataract surgery RT History of colonoscopy History of hysterectomy History of tooth extraction Family History Mother Family history of diabetes mellitus Brother Family history of diabetes mellitus Family hx colonic polyps Social History Smoking Status: Never smoker Cigarettes Per Day: QUIT IN "MY 40'S"; Second Hand Exposure: No; Hx Alcohol Use: Yes Alcohol type: wine Hx Substance Use: No Preferred Language: Jordanian Communication Ability: Effective Manager Unit Required: No Beliefs That Will Affect Care: None Current Living Situation: Spouse Feels Safe at Home: Yes Assistive Devices: Cane and Glasses Review of Systems Review of Systems: ROS per HPI, all other systems reviewed and negative Physical Exam Constitutional: WD/WN, vitals as above Eyes: PERRL, conjunctivae normal, anicteric sclerae ENMT: external ear and nose normal, oropharynx normal Respiratory: normal respiratory effort, lungs clear to auscultation Cardiovascular: Rate/Rhythm: regular rate and regular rhythm Vessels: normal peripheral pulses Extremities: no edema Gastrointestinal (Abdomen): normal bowel sounds, soft, nontender, no hepatosplenomegaly Musculoskeletal: no cyanosis or clubbing, extremities motor strength 5/5 Skin: no rashes, warm and dry Neurologic: moves all extremities Speech / Cognition: normal speech Cranial Nerves: PERRL, normal accommodation and EOM intact bilaterally; + abnormal facial strength (mild left mouth droop) Coordination: + abnormal cvpr-lb-newq test (mild ataxia LLE); normal vsamjh-ku-hbrw test Psychiatric: A+Ox3, euthymic affect Results & Data Results & Data ([facility]) Vital Signs (Past 12 Hours) Vital Signs Temp Pulse Pulse Resp BP BP Pulse Ox 07/14/22 13:02 74 16 07/14/22 12:40 70 17 97 07/14/22 12:49 228/86 H 07/14/22 12:26 84 16 96 07/14/22 12:26 87 16 242/103 H 98 07/14/22 10:18 36.9 C 86 18 190/108 H 95 O2 Del Method 07/14/22 13:02 07/14/22 12:40 Room Air 07/14/22 12:49 07/14/22 12:26 Room Air 07/14/22 12:26 Room Air 07/14/22 10:18 Room Air Laboratory Results Short CBC 07/14/22 Range/Units 11:51 WBC 5.71 (4.8-10.8) K/ul Hgb 13.1 (12.0-16.0) g/dl Hct 38.0 (34.1-44.9) % Plt Count 197 (130-400) K/uL BMP 07/14/22 11:51 Sodium 139 Potassium 3.8 Chloride 103 Carbon Dioxide 28 BUN 17 Creatinine 0.74 Glucose 110 H Calcium 9.6 Liver Function 07/14/22 Range/Units 11:51 Total Bilirubin 0.4 (0.2-1.0) mg/dl AST 18 (13-39) U/L ALT 12 (7-52) U/L Alkaline Phosphatase 84 (34-104) U/L Albumin 4.4 (3.4-5.0) gm/dl Urine 07/14/22 Range/Units 14:20 Urine Color Yellow Urine Appearance Clear (Clear) Urine pH 7.0 (4.5-7.5) Ur Specific Hope 1.036 H (1.000-1.030) Urine Protein Negative (Negative) Urine Glucose (UA) Negative (Negative) Diagnostic Findings Chest X-Ray 07/14/22 10:29 XR chest 1V portable CLINICAL HISTORY: Atypical chest pain. COMPARISON STUDY: Chest radiograph October 30, 2019. FINDINGS: Lung volumes are normal. Lungs are clear. There is no pneumothorax or pleural effusion. Cardiac size is normal. Mediastinal contours are normal. There is no evidence for pulmonary edema. IMPRESSION: No acute cardiopulmonary findings. ACT 112: Negative or not required by law. Electronically signed by: Sandeep Cabezas M.D. 07/14/2022 10:[address] 07/14/22 10:29 CT head/brain wo con CLINICAL HISTORY: headache Technique: Contiguous axial CT images of the head were acquired from the base of the skull to the vertex without intravenous contrast administration. Images were viewed in brain, subdural and bone windows. Automated dose lowering techniques and/or adjustment according to patient size were utilized for this exam. Comparison: None available at the time of this dictation. Findings: The ventricles, basal cisterns, and cerebral sulci are normal. There is no acute intracranial hemorrhage or evidence of acute territorial infarction. Neither mass effect, shift of the midline structures, nor abnormal extra-axial fluid collections are shown. There is opacification of some right mastoid air cells. The sinuses are clear. The orbits appear normal. There are no acute fractures of the calvaria or scalp swelling. Impression: No acute intracranial hemorrhage, no evidence of acute territorial infarction or other acute intracranial disease process. ACT 112: Negative or not required by law. Electronically signed by: Isaías De Anda M.D. 07/14/2022 12:22 PM Head CTA 07/14/22 12:29 CT angio neck with con, CT angio head w con CLINICAL HISTORY: 86 years-old Female with Strokelike symptoms. Acute headache with strokelike symptoms COMPARISON STUDY: Head CT of same day TECHNIQUE: Following the IV administration of 115 mL of Optiray, CT angiogram of the head and neck was performed from the aortic arch to the skull apex. Images are reviewed in the axial, sagittal, and coronal planes. 3-D MIPS images are created and assessed. IV contrast was administered without complication. All measurements were calculated based on NASCET criteria. A dose lowering technique was utilized adhering to the principles of ALARA. CT DOSE: 375.06 mGy.cm FINDINGS: Involutional changes with chronic microvascular ischemic disease. Subcentimeter hypodense focus of the right caudate nucleus. Senescent calcifications of the basal ganglia. There are at least 2 ill-defined hypodense areas noted within the left cerebellar hemisphere measuring up to 1.4 cm. Moderate sized right mastoid effusion. Left mastoid air cells and paranasal sinuses are generally clear. Hyperostosis frontalis interna. Prior bilateral lens repair. When apices are clear without pneumothorax. Subcentimeter thyroid nodules and calcifications. Unremarkable soft tissues. Multilevel degenerative changes of the cervical spine. Moderate atherosclerosis of the imaged thoracic aorta. Patency of the nominate and imaged subclavian arteries. Atherosclerosis of the common carotid arteries which are patent. Mild to moderate atherosclerotic plaque of the left carotid bulb and proximal left ICA resulting in less than 50% stenosis. Moderate to extensive mixed plaque of the right carotid bulb and proximal right ICA results in approximately 75% stenosis. The internal carotid arteries are otherwise patent. Atherosclerotic plaque cavernous, clinoid and supraclinoid segments of the internal carotid arteries results in narrowing of to 50%. Mild to moderate multifocal stenosis throughout the anterior and middle cerebral arteries. Codominant vertebral arteries. Multifocal luminal narrowing involving the V1 and V2 segments of the vertebral arteries measures up to approximately 50% irregularity with high-grade stenosis involves the distal V2 and V3 segments of the left vertebral artery with occlusion involving the distal V3 and V4 segments. There is minimal reconstitution of flow noted within the left PICA. High-grade stenosis of the distal V4 segment with multifocal high-grade stenosis of the basilar artery. Multifocal luminal narrowing of the basilar arteries is predominantly mild to moderate. Cerebral venous sinuses appear patent. There is no abnormal intracranial enhancement identified. IMPRESSION: 1. Small age-indeterminate lacunar infarcts of the left cerebellar hemisphere measure up to approximately 1.4 cm. Additional age-indeterminate lacunar infarct of the right caudate nucleus, favored to be chronic. 2. Age-indeterminate occlusion of the distal left vertebral artery with areas of reconstitution noted within the left PICA. Findings are likely secondary to atherosclerotic vascular disease. An underlying dissection would be difficult to exclude. 3. 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 4. High-grade stenosis within the proximal right ICA. 5. Mild to moderate stenosis throughout the middle and posterior cerebral arteries. ACT 112: Negative or not required by law. The above report was generated using voice recognition software. It may contain grammatical, syntax or spelling errors. Electronically signed by: Aiden Godinez M.D. 07/14/2022 1:21 PM Neck CTA 07/14/22 12:29 CT angio neck with con, CT angio head w con CLINICAL HISTORY: 86 years-old Female with Strokelike symptoms. Acute headache with strokelike symptoms COMPARISON STUDY: Head CT of same day TECHNIQUE: Following the IV administration of 115 mL of Optiray, CT angiogram of the head and neck was performed from the aortic arch to the skull apex. Images are reviewed in the axial, sagittal, and coronal planes. 3-D MIPS images are created and assessed. IV contrast was administered without complication. All measurements were calculated based on NASCET criteria. A dose lowering te chnique was utilized adhering to the principles of ALARA. CT DOSE: 375.06 mGy.cm FINDINGS: Involutional changes with chronic microvascular ischemic disease. Subcentimeter hypodense focus of the right caudate nucleus. Senescent calcifications of the basal ganglia. There are at least 2 ill-defined hypodense areas noted within the left cerebellar hemisphere measuring up to 1.4 cm. Moderate sized right mastoid effusion. Left mastoid air cells and paranasal sinuses are generally clear. Hyperostosis frontalis interna. Prior bilateral lens repair. When apices are clear without pneumothorax. Subcentimeter thyroid nodules and calcifications. Unremarkable soft tissues. Multilevel degenerative changes of the cervical spine. Moderate atherosclerosis of the imaged thoracic aorta. Patency of the nominate and imaged subclavian arteries. Atherosclerosis of the common carotid arteries which are patent. Mild to moderate atherosclerotic plaque of the left carotid bulb and proximal left ICA resulting in less than 50% stenosis. Moderate to extensive mixed plaque of the right carotid bulb and proximal right ICA results in approximately 75% stenosis. The internal carotid arteries are otherwise pa tent. Atherosclerotic plaque cavernous, clinoid and supraclinoid segments of the internal carotid arteries results in narrowing of to 50%. Mild to moderate multifocal stenosis throughout the anterior and middle cerebral arteries. Codominant vertebral arteries. Multifocal luminal narrowing involving the V1 and V2 segments of the vertebral arteries measures up to approximately 50% irregularity with high-grade stenosis involves the distal V2 and V3 segments of the left vertebral artery with occlusion involving the distal V3 and V4 segments. There is minimal reconstitution of flow noted within the left PICA. High-grade stenosis of the distal V4 segment with multifocal high-grade stenosis of the basilar artery. Multifocal luminal narrowing of the basilar arteries is predominantly mild to moderate. Cerebral venous sinuses appear patent. There is no abnormal intracranial enhancement identified. IMPRESSION: 1. Small age-indeterminate lacunar infarcts of the left cerebellar hemisphere measure up to approximately 1.4 cm. Additional age-indeterminate lacunar infarct of the right caudate nucleus, favored to be chronic. 2. Age-indeterminate occlusion of the distal left vertebral artery with areas of reconstitution noted within the left PICA. Findings are likely secondary to atherosclerotic vascular disease. An underlying dissection would be difficult to exclude. 3. 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 4. High-grade stenosis within the proximal right ICA. 5. Mild to moderate stenosis throughout the middle and posterior cerebral arteries. ACT 112: Negative or not required by law. The above report was generated using voice recognition software. It may contain grammatical, syntax or spelling errors. Electronically signed by: Aiden Godinez M.D. 07/14/2022 1:21 PM Code Status & VTE Plan Code Status Patient is a full code as per my discussion with her. Supervising Physician Co-Signing Physician Notes Attending addendum: The patient was seen and examined in emergency room in presence of the grandson She was brought in with dizziness and was noted to have very high blood pressure and cerebellar stroke She still complains to have dizziness but denies any other neurological symptoms Complains to have anxiety with generalized shakes at times On examination Lying in bed comfortably Initial blood pressure was more than 210 systolic and during my examination it has come down to 161/68 Otherwise hemodynamically stable Chestclear to auscultate bilaterally HeartS1-S2, regular Abdomenbenign CNSalert, awake and oriented x3. No focal sensory and motor deficit appre ciated Her admission labs, EKG and imaging studies reviewed MRI did not show 1.4 cm left cerebellar infarct with extensive chronic microvascular ischemic disease CTA did not show significant vascular disease as mentioned above Has been started with losartan 50 mg once a day and amlodipine at 5 mg to control blood pressure Neurology has been consulted Vascular surgery evaluation will be done Agree with assessment plan as outlined above by Sadia Carpenter
[2022-07-14] MEDS ORDERED: GADOBUTROL 65ML VIAL IV ONE (15:59)
[2022-07-14] MEDS ORDERED: amLODIPine BESYLATE 5 MG TAB PO ONE (16:29)
--- NOTE | 2022-07-14 16:45 | Magnetic Resonance Report ---
MR brain wo/w con, MR angio head wo con HISTORY: 86 years-old Female CVA acute strokelike symptoms COMPARISON: CT head, CTA head and neck of same day TECHNIQUE: Multiplanar multisequence MRI of the brain was obtained both with and without the use of 6 cc Gadavist. MRA of the brain without use of IV contrast was also obtained utilizing NASCET criteria with MIP reformats. FINDINGS: MRI BRAIN: There are a few small acute infarcts in the left cerebellar hemisphere measuring up to 1.4 cm as desc ribed on the CTA head study of same day. These demonstrate decreased signal on ADC map. No acute or s ubacute territorial infarct. Midline structures appear unremarkable. Degenerative changes of the cerv ical spine. No acute intracranial hemorrhage, midline shift, abnormal extra-axial collection, hydroce phalus or intracranial mass. Involutional changes. Moderate to extensive T2/FLAIR hyperintense foci t hroughout the white matter. Chronic lacunar infarct of the right caudate nuclear head. Cerebral venous sinuses are patent. Occlusion of the distal left vertebral artery with high-grade geronimo nosis of the basilar artery. Prior bilateral lens repair. Bilateral mastoid effusions. No abnormal en hancement. The study is motion degraded. MRA: Imaged distal internal carotid arteries appear patent. The visualized anterior and middle cerebr al arteries appear patent. Occlusion of the distal left vertebral artery with reconstitution of flow within the PICA. Multifocal high-grade stenosis of the basilar artery. Visualized portions of the pos terior cerebral arteries appear patent. IMPRESSION: 1. Confirmation of the small acute left cerebellar infarcts measuring up to approximately 1.4 cm. 2. Motion degradation limits evaluation of the MRA component of the study. The arterial findings are better evaluated on the comparison CTA head and neck studies of same day. 3. Involutional changes with moderate to extensive chronic microvascular ischemic disease. 4. No abnormal enhancement. ACT 112: Negative or not required by law. The above report was generated using voice recognition software. It may contain grammatical, syntax o r spelling errors. Electronically signed by: Aiden Godinez M.D. 07/14/2022 4:43 PM
[2022-07-14] MEDS ORDERED: ONDANSETRON INJ 2 MG/ML 2 ML VIAL ONE (17:36)
[2022-07-14] MEDS: ONDANSETRON INJ 2 MG/ML 2 ML VIAL IV PRN (17:37)
[2022-07-14] MEDS ORDERED: PHARMACIST DISCHARGE MED REC CONSULT PRN (18:45)
[2022-07-14] MEDS ORDERED: hydrALAZINE HCL 20 MG/ML VIAL IV PRN (18:45)
[2022-07-14] MEDS ORDERED: CLOPIDOGREL BISULFATE 75 MG TAB PO ONE (19:15)
[2022-07-14] MEDS: ATORVASTATIN 40 MG TAB PO SCH (19:48)
[2022-07-14] MEDS: carBAMazepine 200 MG TABLET PO SCH (21:14)
[2022-07-14] MEDS: PROMETHAZINE HCL 6.25 MG in SODIUM CHLORIDE 0.9% 50 ML IV PRN (22:16)
[2022-07-15 06:50] LABS: Basophils # (auto) 0.02 K/uL (0-0.2); Basophils % (auto) 0.3 %; Eosinophils # (auto) 0.07 K/uL (0-0.50); Eosinophils % (auto) 1.2 %; Hematocrit (blood only) 35.4 % (34.1-44.9); Hemoglobin 12.2 g/dl (12.0-16.0); Immature Granulocytes # (auto) 0.02 K/uL (0.00-0.02); Immature Granulocytes % (auto) 0.3 %; Lymphocytes # (auto) 1.71 K/uL (1.2-3.4); Lymphocytes % (auto) 29.3 %; Mean Corpuscular Hgb Conc 34.5 g/dL (32.0-36.0); Mean Corpuscular Volume 92.9 fL (80.0-100.0); Mean Platelet Volume 9.3 fL (9.4-12.3); Monocytes # (auto) 0.48 K/uL (0.24-0.82); Monocytes % (auto) 8.2 %; Neutrophils # (auto) 3.53 K/uL (1.4-6.5); Neutrophils % (auto) 60.7 %; Platelet Count 189 K/uL (130-400); RDW Coefficient of Variation 13.2 % (11.5-14.5); Red Blood Count 3.81 M/uL (3.93-5.22); White Blood Count 5.83 K/ul (4.8-10.8)
[2022-07-15 07:20] LABS: BUN Creatinine Ratio 20.8 (10-20); Calcium 9.2 mg/dl (8.5-10.1); Chol HDL Ratio 3.9 (0-5); Creatinine Clr Calc Pharmacy 44.9 ml/min; Est GFR (African American) 80.5 ml/min; Est GFR (Non-African American) 69.4 ml/min; Potassium 4.2 mmol/L (3.5-5.1)
[2022-07-15] MEDS: amLODIPine BESYLATE 5 MG TAB PO SCH (08:03)
[2022-07-15] MEDS: carBAMazepine 200 MG TABLET PO SCH ×2 (08:03→21:46)
[2022-07-15] MEDS: LOSARTAN POTASSIUM 50 MG TAB PO SCH (08:03)
[2022-07-15] MEDS: ASPIRIN 81 MG ECTAB PO SCH (08:03)
--- NOTE | 2022-07-15 08:18 | Neurology Consultation ---
Date of Consultation July 15, 2022 Assessment & Plan (1) Cerebellar stroke: (2) Occlusion of left vertebral artery: (3) Carotid stenosis, right: (4) Basilar artery stenosis: (5) Hypertensive emergency: Plan 86-year-old female with several small acute left cerebellar infarcts occurring in the context of an occluded left vertebral artery with distal reconstitution, hypertensive emergency, and extensive cerebrovascular disease including multifocal high-grade stenoses throughout the basilar artery and a high-grade stenosis (75%) within the proximal right internal carotid artery that would not be related to her current presentation. She does not have any focal deficits on neurological examination, notably, no hemiataxia that would otherwise associate with acute cerebellar infarcts. Stroke risk factors with this patient include hypertension and dyslipidemia. She has not been on a statin. Agree with dual antiplatelet therapy for the time being, daily low-dose aspirin and clopidogrel 75 mg/day. Plan to transition to Plavix monotherapy after 3 weeks. I also agree with the addition of atorvastatin 40 mg/day. Goal LDL less than 100 depending on tolerability. Patient does express some concern regarding potential side effects of statins, in particular memory loss. She does not have significant cognitive impairment at this time. Allow for permissive hypertension, systolic blood pressure goal range 140 to 160 mmHg acutely. Consultation with vascular surgery as ordered. However, I do not think the proximal right internal carotid artery stenosis would require intervention at this time as it would not be related to her left cerebellar stroke. Furthermore , the distal left vertebral artery occlusion and multifocal high-grade stenoses throughout the basilar artery would not be addressed with procedures such as stenting or revascularization surgery. Medical management would be recommended, especially as this patient is clinically stable. Furthermore, I note that an underlying dissection involving the left vertebral artery cannot be completely excluded. However, as above, medical management would be the standard of care for vertebral artery dissections as well. Antiplatelet or anticoagulant therapy are both considered appropriate without clear evidence of superiority of either treatment approach. Given this patient's advanced age and theoretical increased bleeding risk, as well as evidence of extensive cerebrovascular disease including a high-grade right ICA stenosis, I would tend to recommend antiplatelet therapy, over an anticoagulant. As above, per stroke recommendations, would plan for dual antiplatelet therapy with aspirin and Plavix for 3 weeks, followed by transition to Plavix monotherapy. Follow-up with results of echocardiogram. No evidence of atrial fibrillation on ECG. If, however, going forward, patient were to have evidence of atrial fibrillation or compelling evidence of cardioembolic phenomena, would consider utilizing a direct oral anticoagulant such as Eliquis and daily low-dose aspirin, instead of dual antiplatelet therapy (aspirin and Plavix) as above. History of Present Illness Reason for Consultation: CVA Requesting Physician: ISABELL Wen Attending Physician: Saul Carpenter MD History of Present Illness The patient is an 86-year-old female who presented to the emergency department yesterday for further evaluation of headache and dizziness which have been present for about the past week. She complained of a severe occipital frontal headache as well. She does not have any deficits on neurological examination. She was significantly hypertensive and treated. CT angiography of the head and neck revealed a few small age indeterminate lacunar infarcts, left cerebellar hemisphere, right caudate nucleus, and an age-indeterminate occlusion of the distal left vertebral artery with distal reconstitution. Underlying dissection not completely excluded. 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 High-grade stenosis within the right internal carotid artery. Mild to moderate stenosis throughout the middle and posterior cerebral arteries. A follow-up brain MRI did reveal a few acute small left cerebellar infarcts. I did independently review these images and was able to identify these findings. She has been started on aspirin, Plavix, and Lipitor. An electrocardiogram has revealed a normal sinus rhythm, possible left atrial enlargement. An echocardiogram has been ordered. This morning, the patient complains of a low-grade frontal headache. 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 She denies experiencing any difficulty with coordination or using her hands for fine motor tasks. No dysphagia or dysarthria. As above, she indicates that she began experiencing dizziness and headache about 1 week ago, her symptoms persisted and progressed but were not really associated with any specific strokelike symptom. She did have some associated nausea although the symptom has resolved. She ate her breakfast this morning without any difficulty. Her blood pressure was much better controlled this morning. Allergies Allergy/AdvReac Type Severity Reaction Status Date / Time amoxicillin [From Augmentin] Allergy Intermediate HIVES/PASSED Verified 07/14/22 14:59 OUT cephalexin [From Keflex] Allergy Intermediate Hives Verified 07/14/22 14:59 clavulanic acid Allergy Intermediate HIVES/PASSED Verified 07/14/22 14:59 [From Augmentin] OUT Penicillins Allergy Intermediate Hives Verified 07/14/22 14:59 Home Medications Medication Instructions Recorded Confirmed Type carbamazepine 200 mg tablet 200 mg PO BID 04/15/18 07/14/22 History fluticasone propionate 50 2 spray intranasal DAILY PRN 04/15/18 07/14/22 History mcg/actuation nasal Congestion spray,suspension (Flonase Allergy Relief) losartan 50 mg tablet 50 mg PO HS 07/14/22 07/14/22 History Patient History Medical History Hyperlipidemia Hypertension Macular degeneration Migraine Osteoarthritis Trigeminal neuralgia Surgical History History of cataract surgery RT History of colonoscopy History of hysterectomy History of tooth extraction Family History Mother Family history of diabetes mellitus Brother Family history of diabetes mellitus Family hx colonic polyps Social History Smoking Status: Former smoker Cigarettes Per Day: QUIT IN "MY 40'S"; Second Hand Exposure: No; Hx Alcohol Use: Yes Alcohol type: wine Hx Substance Use: No Preferred Language: Icelandic Communication Ability: Effective Hosiery Looper Required: No Beliefs That Will Affect Care: None Current Living Situation: Alone Other Information That Helps Us Care for You: No Feels Safe at Home: Yes Safety Concerns: Feels Safe At This Time Assistive Devices: Cane Review of Systems Constitutional: no fever and no chills Eyes: as per Subjective / HPI and + blind spots; no diplopia Ear, Nose, Mouth, Throat: no hearing loss Respiratory: no cough and no dyspnea Cardiovascular: no chest pain and no palpitations Gastrointestinal: as per Subjective / HPI Genitourinary: no dysuria Musculoskeletal: no neck pain and no myalgia Integumentary: no rash and no lesions Neurologic: as per Subjective / HPI and + headache(s); no localized weakness, no loss of sensation, no lack of coordination, no tremor(s), no abnormal movements, no syncope and no memory loss Psychiatric: no depression and no anxiety Hematologic / Lymphatic: no easy bleeding and no easy bruising Exam (Neuro) Constitutional: well developed and well nourished; no acute distress Eyes: PERRL, normal accommodation and EOM intact bilaterally; + abnormal visual field confrontation (poor acuity left eye), no fundoscopic abnormality, no nystagmus and no papilledema Cardiovascular: Vessels: + carotid bruit (right) and normal carotid upstroke Neurologic: Oriented to:: Person, Place and Time Memory: Short Term Intact and Remote Intact Attention: Span Intact and Concentration Intact Language: Naming Objects and Repeating Phrases Speech Fluency: negative Dysarthria Speech Aphasia: negative Aphasia Fund of Knowledge: Current Events, Past History and Vocabulary Cranial Nerves: Normal III, IV, (Pupils equal round reactive to light and accommodation, eye movements normal), V (Facial sensation intact), VII (There is no facial droop or weakness), VIII (Hearing intact), IX, X (Palate elevates to midline), XI (Shoulder shrug intact) and XII (Tongue protrudes to midline); Abnorm II (decreased visual field and acuity left eye) Motor Strength: Normal Lower Extremities and Normal Upper Extremities; negative Pronator Drift Motor Tone: Normal Lower Extremities and Normal Upper Extremities Muscle Bulk/Involuntary Movements: No Involuntary Movements; negative Muscle Atrophy Sensation: Light Touch Intact, Pain/Temperature Intact, Vibration Intact and Proprioception Intact Coordination: Normal; negative Limited Balance, Dysdiadochokinesia, Finger-Nose Abnormal or Heel-Bell Abnormal Deep Tendon Reflexes: Rt Triceps: 2+, Lt Triceps: 2+, Rt Biceps: 2+, Lt Biceps: 2+, Rt Brachioradialis: 2+, Lt Brachioradialis: 2+, Rt Patellar: 2+, Lt Patellar: 2+, Rt Ankle: 2+ and Lt Ankle: 2+ Special Tests: negative Babinski Present Details: Gait not tested in context of patient's current neurological status. Results & Data ([facility]) Vital Signs (Past 12 Hours) Vital Signs Temp Pulse Pulse Resp BP Pulse Ox O2 Del Method 07/15/22 07:20 36.9 C 16 130/67 98 Room Air 07/15/22 03:05 36.6 C 74 17 160/64 H 96 Room Air 07/14/22 23:34 64 07/14/22 23:02 36.6 C 67 18 153/71 H 94 Room Air Laboratory Results WBC 5.83, hemoglobin 12.2, hematocrit 35.4, platelet count 189, ESR 18, sodium 139, potassium 4.2, BUN 16, creatinine 0.77, glucose 113, magnesium 2.2, CRP less than 0.50, triglycerides 79, cholesterol 264, LDL 181, VLDL 16, HDL 67, TSH 1.746, carbamazepine level 2.[address] angiography of the head and neck, and brain MRI are as described in the history of present illness, I independently reviewed these images. An electrocardiogram revealed a normal sinus rhythm, 74 bpm, possible left atrial enlargement. PG Care Time/CCT Total # of Minutes Spent Total Time Spent with Patient: Total time spent is greater than 50% in coordination of care (as documented) at patient's floor/unit and/or counseling patient: Coding Level of Care Code 81625 INT INP/OBS CARE 3MIN Diagnoses Cerebellar stroke I63.9 Occlusion of left vertebral artery I65.02 Carotid stenosis, right I65.21 Basilar artery stenosis I65.1 Hypertensive emergency I16.1
[2022-07-15 10:01] LABS: Estimated Average Glucose 120 mg/dl; Hemoglobin A1C 5.8 % (4.5-5.6)
[2022-07-15] MEDS: ONDANSETRON INJ 2 MG/ML 2 ML VIAL IV PRN (10:21)
[2022-07-15] MEDS: ACETAMINOPHEN 500 MG TAB PO PRN (10:21)
[2022-07-15] MEDS: ATORVASTATIN 40 MG TAB PO SCH (12:31)
[2022-07-15] MEDS: CLOPIDOGREL BISULFATE 75 MG TAB PO SCH (12:31)
[2022-07-15] MEDS: PROMETHAZINE HCL 6.25 MG in SODIUM CHLORIDE 0.9% 50 ML IV PRN (13:30)
--- NOTE | 2022-07-15 14:36 | Hospitalist Progress Note ---
Date of Service July 15, 2022 Assessment & Plan (1) Hypertensive emergency: Plan: Presented with systolic blood pressure more than 220 on admission Received intravenous labetalol x2 of 10 mg Received losartan 50 mg and amlodipine 5 mg Blood pressure improved and today it is 155/71 Patient is symptomatically much better (2) Lacunar stroke: (3) Carotid stenosis, right: Plan: Admit to PCU Patient presenting from home with reports of headache, dizziness, nausea, difficulty ambulating x 6 days In the ED, patient was found to be significantly hypertensive with BP 242/103 Patient received labetalol 10 mg IV x 2 doses with minimal improvement. Will give hydralazine 10 mg IV and losartan 50 mg p.o. (patient's home dose) --> some improvement in BP, will give another dose of hydralazine and give amlodipine 5mg now. Resume Losartan 50mg and Amlodipine 5mg tomorrow AM. PRN hydralazine SBP > 195 Head/Neck CTA: 1. Small age-indeterminate lacunar infarcts of the left cerebellar hemisphere measure up to approximately 1.4 cm. Additional age-indeterminate lacunar infarct of the right caudate nucleus, favored to be chronic. 2. Age-indeterminate occlusion of the distal left vertebral artery with areas of reconstitution noted within the left PICA. Findings are likely secondary to atherosclerotic vascular disease. An underlying dissection would be difficult to exclude. 3. 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 4. High-grade stenosis within the proximal right ICA. 5. Mild to moderate stenosis throughout the middle and posterior cerebral arteries. Brain MRI/MRA-small acute left cerebellar infarct measuring up to approximately 1.4 cm Echo-LV is normal in size, mild concentric LVH, focal thickening of the basal septum with no evidence of left ventricular outflow obstruction, septal motion is consistent with conduction abnormality, no regional wall motion abnormalities, EF 55 to 60%, grade 1 diastolic dysfunction, aortic valve sclerosis mild without significant aortic valve stenosis, interatrial septum is intact with no evidence of atrial septal defect and injection of contrast documented no interatrial shunt Neurology consult -Case discussed with Dr. Dexter via tiger text-appreciate input and recommendation Start Plavix 75mg, ASA 81mg, atorvastatin 40mg Denies any neurological symptoms Dizziness seems to be improving Consult vascular re: high grade proximal right ICA stenosis Have outpatient vascular surgery evaluation the patient lives before Sunday (4) Trigeminal neuralgia: Plan: Continue carbamazepine DVT PROPHYLAXIS SCDs Admission and Anticipated Discharge Date Admission Date: July 14, 2022 Subjective 07/15/2022 The patient was seen and examined in telemetry unit She has been feeling much better Dizziness has improved and the blood pressure seems to be controlled Denies any other neurological symptoms Review of Systems Review of Systems: All systems reviewed and are unremarkable as noted Physical Exam Physical Exam: Lying in bed without any acute distress Constitutional: average body habitus; not ill appearing Eyes: PERRL, conjunctivae normal, anicteric sclerae ENMT: external ear and nose normal, oropharynx normal Neck: trachea midline, no thyromegaly Respiratory: no respiratory distress Auscultation: lungs clear to auscultation bilaterally Cardiovascular: Rate/Rhythm: regular rate and regular rhythm; not tachycardic Heart Sounds: normal S1 and normal S2; no murmur Extremities: no edema Gastrointestinal (Abdomen): Inspection/Auscultation: normal bowel sounds; abdomen not distended Percussion/Palpation: abdomen soft; abdomen nontender Musculoskeletal: No acute arthritis in any joint Neurologic: normal touch/pain/proprioception and moves all extremities; no focal motor deficits Psychiatric: A+Ox3, euthymic affect Lymphatic: no cervical or axillary lymphadenopathy Results & Data Results & Data ([facility]) Vital Signs (Past 12 Hours) Vital Signs Temp Pulse Resp BP Pulse Ox O2 Del Method 07/15/22 10:56 36.8 C 65 18 155/71 H 97 Room Air 07/15/22 07:20 36.9 C 16 130/67 98 Room Air 07/15/22 03:05 36.6 C 74 17 160/64 H 96 Room Air Laboratory Results Short CBC 07/15/22 Range/Units 06:09 WBC 5.83 (4.8-10.8) K/ul Hgb 12.2 (12.0-16.0) g/dl Hct 35.4 (34.1-44.9) % Plt Count 189 (130-400) K/uL BMP 07/15/22 06:09 Sodium 139 Potassium 4.2 Chloride 104 Carbon Dioxide 31 BUN 16 Creatinine 0.77 Glucose 113 H Calcium 9.2 Urine 07/14/22 Range/Units 14:20 Urine Color Yellow Urine Appearance Clear (Clear) Urine pH 7.0 (4.5-7.5) Ur Specific Freer 1.036 H (1.000-1.030) Urine Protein Negative (Negative) Urine Glucose (UA) Negative (Negative) Medications Administered Current Inpatient Medications Acetaminophen (Acetaminophen 500 Mg Tab) 1,000 mg PO TID PRN PRN Reason: Pain Stop: 08/14/22 10:03 Last Admin: 07/15/22 10:21 Dose: 1,000 mg Amlodipine Besylate (Amlodipine Besylate 5 Mg Tab) 5 mg PO [facility] Stop: 08/14/22 08:59 Last Admin: 07/15/22 08:03 Dose: 5 mg Aspirin (Aspirin 81 Mg Ectab) 81 mg PO DAILY [facility] Stop: 08/14/22 08:59 Last Admin: 07/15/22 08:03 Dose: 81 mg Atorvastatin Calcium (Atorvastatin 40 Mg Tab) 40 mg PO [facility] Stop: 08/13/22 19:14 Last Admin: 07/15/22 12:31 Dose: 40 mg Carbamazepine (Carbamazepine 200 Mg Tablet) 200 mg PO BID [facility] Stop: 08/13/22 20:59 Last Admin: 07/15/22 08:03 Dose: 200 mg Clopidogrel Bisulfate (Clopidogrel Bisulfate 75 Mg Tab) 75 mg PO [facility] Stop: 08/14/22 11:59 Last Admin: 07/15/22 12:31 Dose: 75 mg Hydralazine HCl (Hydralazine Hcl 20 Mg/Ml Vial) 5 mg IV Q6H PRN PRN Reason: HTN Stop: 08/13/22 18:44 Promethazine HCl 6.25 mg/ (Sodium Chloride) 50.25 mls @ 201 mls/hr IV Q6H PRN PRN Reason: Nausea And Vomiting Stop: 08/13/22 20:55 Last Infusion: 07/15/22 13:57 Dose: Infused Losartan Potassium (Losartan Potassium 50 Mg Tab) 50 mg PO [facility] Stop: 08/14/22 08:59 Last Admin: 07/15/22 08:03 Dose: 50 mg Miscellaneous Information (Pharmacist Discharge Med Rec Consult) 1 each N/A UD PRN PRN Reason: Consult Stop: 08/13/22 18:44 Ondansetron HCl (Ondansetron Inj 2 Mg/Ml 2 Ml Vial) 4 mg IV Q6H PRN PRN Reason: Nausea And Vomiting Stop: 08/13/22 17:33 Last Admin: 07/15/22 10:21 Dose: 4 mg
[2022-07-15] MEDS ORDERED: D5W AND 1/2NSS 1,000 ML IV SCH (16:30)
[2022-07-15] MEDS: PANTOprazole 40 MG TAB PO SCH (17:47)
[2022-07-16 06:26] LABS: Basophils # (auto) 0.02 K/uL (0-0.2); Basophils % (auto) 0.4 %; Eosinophils # (auto) 0.14 K/uL (0-0.50); Eosinophils % (auto) 2.5 %; Hematocrit (blood only) 32.9 % (34.1-44.9); Hemoglobin 11.3 g/dl (12.0-16.0); Immature Granulocytes # (auto) 0.01 K/uL (0.00-0.02); Immature Granulocytes % (auto) 0.2 %; Lymphocytes # (auto) 2.67 K/uL (1.2-3.4); Mean Corpuscular Hemoglobin 31.9 pg (25.0-34.0); Mean Corpuscular Hgb Conc 34.3 g/dL (32.0-36.0); Mean Corpuscular Volume 92.9 fL (80.0-100.0); Mean Platelet Volume 9.1 fL (9.4-12.3); Monocytes # (auto) 0.42 K/uL (0.24-0.82); Monocytes % (auto) 7.6 %; Neutrophils % (auto) 41.3 %; Platelet Count 166 K/uL (130-400); RDW Coefficient of Variation 13.2 % (11.5-14.5); RDW Standard Deviation 45.5 fL (36.4-46.3); Red Blood Count 3.54 M/uL (3.93-5.22); White Blood Count 5.56 K/ul (4.8-10.8)
[2022-07-16 07:04] LABS: BUN Creatinine Ratio 21.2 (10-20); Calcium 8.5 mg/dl (8.5-10.1); Creatinine Clr Calc Pharmacy 51.4 ml/min; Est GFR (African American) 92.1 ml/min; Est GFR (Non-African American) 79.4 ml/min; Potassium 3.5 mmol/L (3.5-5.1)
[2022-07-16] MEDS: ATORVASTATIN 40 MG TAB PO SCH (08:00)
[2022-07-16] MEDS: carBAMazepine 200 MG TABLET PO SCH ×2 (08:00→20:18)
[2022-07-16] MEDS: CLOPIDOGREL BISULFATE 75 MG TAB PO SCH (08:00)
[2022-07-16] MEDS: ASPIRIN 81 MG ECTAB PO SCH (08:00)
[2022-07-16] MEDS: PANTOprazole 40 MG TAB PO SCH (08:00)
[2022-07-16] MEDS: amLODIPine BESYLATE 5 MG TAB PO SCH (08:00)
[2022-07-16] MEDS: LOSARTAN POTASSIUM 50 MG TAB PO SCH (08:00)
[2022-07-16] MEDS ORDERED: MECLIZINE 12.5 MG TAB PO PRN (13:14)
--- NOTE | 2022-07-16 13:14 | Hospitalist Progress Note ---
Date of Service July 16, 2022 Assessment & Plan (1) Hypertensive emergency: Plan: Presented with systolic blood pressure more than 220 on admission Received intravenous labetalol x2 of 10 mg Received losartan 50 mg and amlodipine 5 mg Blood pressure improved and today it is 155/71 Patient is symptomatically much better Blood pressure is better controlled (2) Cerebellar stroke: Plan: Admit to PCU Patient presenting from home with reports of headache, dizziness, nausea, difficulty ambulating x 6 days In the ED, patient was found to be significantly hypertensive with BP 242/103 Patient received labetalol 10 mg IV x 2 doses with minimal improvement. Will give hydralazine 10 mg IV and losartan 50 mg p.o. (patient's home dose) --> some improvement in BP, will give another dose of hydralazine and give amlodipine 5mg now. Resume Losartan 50mg and Amlodipine 5mg tomorrow AM. PRN hydralazine SBP > 195 Head/Neck CTA: 1. Small age-indeterminate lacunar infarcts of the left cerebellar hemisphere measure up to approximately 1.4 cm. Additional age-indeterminate lacunar infarct of the right caudate nucleus, favored to be chronic. 2. Age-indeterminate occlusion of the distal left vertebral artery with areas of reconstitution noted within the left PICA. Findings are likely secondary to atherosclerotic vascular disease. An underlying dissection would be difficult to exclude. 3. 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 4. High-grade stenosis within the proximal right ICA. 5. Mild to moderate stenosis throughout the middle and posterior cerebral arteries. Brain MRI/MRA-small acute left cerebellar infarct measuring up to approximately 1.4 cm Echo-LV is normal in size, mild concentric LVH, focal thickening of the basal septum with no evidence of left ventricular outflow obstruction, septal motion is consistent with conduction abnormality, no regional wall motion abnormalities, EF 55 to 60%, grade 1 diastolic dysfunction, aortic valve scle rosis mild without significant aortic valve stenosis, interatrial septum is intact with no evidence of atrial septal defect and injection of contrast documented no interatrial shunt Neurology consult -Case discussed with Dr. Dexter via tiger text-appreciate input and recommendation Start Plavix 75mg, ASA 81mg, atorvastatin 40mg Denies any neurological symptoms Dizziness seems to be improving Has had physical therapy and did notice to have dizziness during the therapy Will start a small dose of Antivert and check orthostatic vitals (3) Lacunar stroke: (4) Carotid stenosis, right: Plan: Consult vascular re: high grade proximal right ICA stenosis Have outpatient vascular surgery evaluation the patient lives before Sunday Likely medical management (5) Trigeminal neuralgia: Plan: Continue carbamazepine DVT PROPHYLAXIS SCDs Plan Likely discharge tomorrow Admission and Anticipated Discharge Date Admission Date: July 14, 2022 Subjective 07/15/2022 The patient was seen and examined in telemetry unit She has been feeling much better Dizziness has improved and the blood pressure seems to be controlled Denies any other neurological symptoms 07/16/2022 The patient was seen and examined in telemetry unit She has been feeling much better Only has minimal dizziness with ambulation and standing Will get orthostatic vitals Will start very small dose of Antivert as needed Review of Systems Review of Systems: All systems reviewed and are unremarkable as noted Physical Exam Physical Exam: Lying in bed without any acute distress Constitutional: average body habitus; not ill appearing Eyes: PERRL, conjunctivae normal, anicteric sclerae ENMT: external ear and nose normal, oropharynx normal Neck: trachea midline, no thyromegaly Respiratory: no respiratory distress Auscultation: lungs clear to auscultation bilaterally Cardiovascular: Rate/Rhythm: regular rate and regular rhythm; not tachycardic Heart Sounds: normal S1 and normal S2; no murmur Extremities: no edema Gastrointestinal (Abdomen): Inspection/Auscultation: normal bowel sounds; abdomen not distended Percussion/Palpation: abdomen soft; abdomen nontender Neurologic: normal touch/pain/proprioception and moves all extremities; no focal motor deficits Psychiatric: A+Ox3, euthymic affect Lymphatic: no cervical or axillary lymphadenopathy Results & Data Results & Data ([facility]) Vital Signs (Past 12 Hours) Vital Signs Temp Pulse Pulse Pulse Pulse Resp BP 07/16/22 11:45 36.3 C L 70 18 147/75 H 07/16/22 07:10 64 07/16/22 06:56 36.8 C 64 14 171/65 H 07/16/22 05:32 183/71 H 07/16/22 03:41 36.4 C L 75 18 185/74 H Pulse Ox O2 Del Method 07/16/22 11:45 97 Room Air 07/16/22 07:10 07/16/22 06:56 98 Room Air 07/16/22 05:32 01/15/23 03:41 95 Room Air Laboratory Results Short CBC 07/16/22 Range/Units 06:09 WBC 5.56 (4.8-10.8) K/ul Hgb 11.3 L (12.0-16.0) g/dl Hct 32.9 L (34.1-44.9) % Plt Count 166 (130-400) K/uL BMP 07/16/22 06:09 Sodium 136 Potassium 3.5 Chloride 101 Carbon Dioxide 31 BUN 14 Creatinine 0.66 Glucose 110 H Calcium 8.5 Medications Administered Current Inpatient Medications Acetaminophen (Acetaminophen 500 Mg Tab) 1,000 mg PO TID PRN PRN Reason: Pain Stop: 08/14/22 10:03 Last Admin: 07/15/22 10:21 Dose: 1,000 mg Amlodipine Besylate (Amlodipine Besylate 5 Mg Tab) 5 mg PO [facility] Stop: 08/14/22 08:59 Last Admin: 07/16/22 08:00 Dose: 5 mg Aspirin (Aspirin 81 Mg Ectab) 81 mg PO DAILY [facility] Stop: 08/14/22 08:59 Last Admin: 07/16/22 08:00 Dose: 81 mg Atorvastatin Calcium (Atorvastatin 40 Mg Tab) 40 mg PO [facility] Stop: 08/13/22 19:14 Last Admin: 07/16/22 08:00 Dose: 40 mg Carbamazepine (Carbamazepine 200 Mg Tablet) 200 mg PO BID [facility] Stop: 08/13/22 20:59 Last Admin: 07/16/22 08:00 Dose: 200 mg Clopidogrel Bisulfate (Clopidogrel Bisulfate 75 Mg Tab) 75 mg PO [facility] Stop: 08/14/22 11:59 Last Admin: 07/16/22 08:00 Dose: 75 mg Hydralazine HCl (Hydralazine Hcl 20 Mg/Ml Vial) 5 mg IV Q6H PRN PRN Reason: HTN Stop: 08/13/22 18:44 Promethazine HCl 6.25 mg/ (Sodium Chloride) 50.25 mls @ 201 mls/hr IV Q6H PRN PRN Reason: Nausea And Vomiting Stop: 08/13/22 20:55 Last Infusion: 07/15/22 13:57 Dose: Infused Losartan Potassium (Losartan Potassium 50 Mg Tab) 50 mg PO [facility] Stop: 08/14/22 08:59 Last Admin: 07/16/22 08:00 Dose: 50 mg Miscellaneous Information (Pharmacist Discharge Med Rec Consult) 1 each N/A UD PRN PRN Reason: Consult Stop: 08/13/22 18:44 Ondansetron HCl (Ondansetron Inj 2 Mg/Ml 2 Ml Vial) 4 mg IV Q6H PRN PRN Reason: Nausea And Vomiting Stop: 08/13/22 17:33 Last Admin: 07/15/22 10:21 Dose: 4 mg Pantoprazole Sodium (Pantoprazole 40 Mg Tab) 40 mg PO [facility] Stop: 08/14/22 16:29 Last Admin: 07/16/22 08:00 Dose: 40 mg
[2022-07-16] MEDS: ACETAMINOPHEN 500 MG TAB PO PRN (15:59)
[2022-07-16] MEDS ORDERED: traMADol HCL 50 MG TABLET PO STA (22:57)
--- NOTE | 2022-07-16 23:29 | CT Scan Report ---
CT SCAN OF THE BRAIN WITHOUT IV CONTRAST CLINICAL HISTORY: Headache. COMPARISON STUDY: CT an MRI of the brain dated 07/14/2022. TECHNIQUE: Unenhanced axial CT scan of the brain is performed from the vertex to the skull base. A do se lowering technique was utilized adhering to the principles of ALARA. CT DOSE: 537.48 mGy.cm FINDINGS: Brain parenchyma: There is age-related involutional change noting moderate subcortical and periventri cular microangiopathic disease. There is no hemorrhage, mass effect, or evidence of acute territorial ischemia by CT criteria. Small evolving lacunar infarcts are again seen in the left cerebellar hemis phere. A chronic lacunar infarct is seen in the right caudate head. No extra-axial fluid collection i s seen. Ventricles, sulci, cisterns: Prominent secondary to involutional change. Intracranial vasculature: There is atherosclerotic calcification of the cavernous carotid and vertebr al arteries. Calvarium: Unremarkable. Sinuses and mastoids: The visualized paranasal sinuses are clear. There are bilateral mastoid effusio ns, right larger than left. Orbits: The bony orbits are grossly intact. There are bilateral ocular lens implants. IMPRESSION: 1. There is no hemorrhage, mass effect, or evidence of acute territorial ischemia by CT criteria. 2. Small evolving lacunar infarcts are again seen in the left cerebellar hemisphere. ACT 112: Negative or not required by law. Electronically signed by: Jonathan Reddy M.D. 07/16/2022 11:27 PM
[2022-07-17 06:36] LABS: Basophils # (auto) 0.02 K/uL (0-0.2); Basophils % (auto) 0.3 %; Eosinophils # (auto) 0.17 K/uL (0-0.50); Eosinophils % (auto) 2.7 %; Hematocrit (blood only) 33.5 % (34.1-44.9); Hemoglobin 11.5 g/dl (12.0-16.0); Immature Granulocytes # (auto) 0.01 K/uL (0.00-0.02); Immature Granulocytes % (auto) 0.2 %; Lymphocytes # (auto) 2.63 K/uL (1.2-3.4); Lymphocytes % (auto) 42.2 %; Mean Corpuscular Hemoglobin 31.6 pg (25.0-34.0); Mean Corpuscular Hgb Conc 34.3 g/dL (32.0-36.0); Mean Platelet Volume 9.3 fL (9.4-12.3); Monocytes # (auto) 0.45 K/uL (0.24-0.82); Monocytes % (auto) 7.2 %; Neutrophils # (auto) 2.95 K/uL (1.4-6.5); Neutrophils % (auto) 47.4 %; Platelet Count 168 K/uL (130-400); RDW Coefficient of Variation 13.1 % (11.5-14.5); RDW Standard Deviation 44.4 fL (36.4-46.3); Red Blood Count 3.64 M/uL (3.93-5.22); White Blood Count 6.23 K/ul (4.8-10.8)
[2022-07-17 07:03] LABS: BUN Creatinine Ratio 23.5 (10-20); Calcium 8.8 mg/dl (8.5-10.1); Creatinine Clr Calc Pharmacy 41.9 ml/min; Est GFR (African American) 75.7 ml/min; Est GFR (Non-African American) 65.3 ml/min; Potassium 4.5 mmol/L (3.5-5.1)
[2022-07-17] MEDS: LOSARTAN POTASSIUM 50 MG TAB PO SCH (08:07)
[2022-07-17] MEDS: amLODIPine BESYLATE 5 MG TAB PO SCH (08:08)
[2022-07-17] MEDS: ATORVASTATIN 40 MG TAB PO SCH (08:08)
[2022-07-17] MEDS: ASPIRIN 81 MG ECTAB PO SCH (08:08)
[2022-07-17] MEDS: carBAMazepine 200 MG TABLET PO SCH ×2 (08:08→20:30)
[2022-07-17] MEDS: PANTOprazole 40 MG TAB PO SCH (08:08)
[2022-07-17] MEDS: CLOPIDOGREL BISULFATE 75 MG TAB PO SCH (08:08)
--- NOTE | 2022-07-17 09:51 | Consultation ---
Date of Consultation July 17, 2022 Assessment & Plan (1) Carotid stenosis, right: Pt with approx 75% stenosis of R ICA. She is asymptomatic from this lesion currently, as all of her imaging demonstrates cerebellar and L hemispheric infarcts. No surgical intervention necessary for the R ICA stenosis. Her intracranial and vertebral art stenosis/occlusions also do not require intervention. Will reeval in 6 months with carotid US. Pt agreeable to this plan. Please call if needed. History of Present Illness Reason for Consultation: R ICA stenosis Attending Physician: Saul Carpenter MD History of Present Illness 86 yo f with hx of HTN, trigeminal neuralgia, and carotid stenosis, admitted with HTN emergency and sx of ABARCA, dizziness, nausea, seen in consultation today for R ICA stenosis noted on imaging. Pt states she has had R ICA stenosis for many years and was following at [facility] until the vascular surgeon there left the practice a few years ago. She states the last she knew it was about 65%. States her BP had been well controlled on the losartan, although her PCP did increase her dosage a few months ago. She has never has BP this high before. States she noted dizziness, nausea, and generalized weakness about 1 week ago while sitting at her computer. States she put her head down on the d esk for a few minutes, then went to bed. Her dizziness has been intermittent, but she has felt generally somewhat weak since the first event. States she usually is fully independent, lives alone, even does her own cooking/cleaning. Her son lives nearby and is able to help her if she needs it. Denies hx of CVA in past. Denies amaurosis, unilateral weakness, palpitations, chest pain, SOB, abd pain, other complaints. CTA neck/head demonstrates R ICA stenosis of about 75%, and multiple intracranial stenoses, as well as vertebral artery stenosis. Allergies Allergy/AdvReac Type Severity Reaction Status Date / Time amoxicillin [From Augmentin] Allergy Intermediate HIVES/PASSED Verified 07/14/22 14:59 OUT cephalexin [From Keflex] Allergy Intermediate Hives Verified 07/14/22 14:59 clavulanic acid Allergy Intermediate HIVES/PASSED Verified 07/14/22 14:59 [From Augmentin] OUT Penicillins Allergy Intermediate Hives Verified 07/14/22 14:59 Home Medications Medication Instructions Recorded Confirmed Type carbamazepine 200 mg tablet 200 mg PO BID 04/15/18 07/14/22 History fluticasone propionate 50 2 spray intranasal DAILY PRN 04/15/18 07/14/22 History mcg/actuation nasal Congestion spray,suspension (Flonase Allergy Relief) losartan 50 mg tablet 50 mg PO HS 07/14/22 07/14/22 History Patient History Medical History Hyperlipidemia Hypertension Macular degeneration Migraine Osteoarthritis Trigeminal neuralgia Surgical History History of cataract surgery RT History of colonoscopy History of hysterectomy History of tooth extraction Family History Mother Family history of diabetes mellitus Brother Family history of diabetes mellitus Family hx colonic polyps Social History Smoking Status: Former smoker Cigarettes Per Day: QUIT IN "MY 40'S"; Second Hand Exposure: No; Hx Alcohol Use: Yes Alcohol type: wine Hx Substance Use: No Preferred Language: Haitian Communication Ability: Effective Proration Clerk Required: No Beliefs That Will Affect Care: None Current Living Situation: Alone Other Information That Helps Us Care for You: No Feels Safe at Home: Yes Safety Concerns: Feels Safe At This Time Assistive Devices: Cane Review of Systems Review of Systems: All systems reviewed & are unremarkable except as noted in HPI & below Physical Exam Constitutional: WD/WN, vitals as above cooperative and comfortable; not in distress Neck: trachea midline Respiratory: normal respiratory effort; no respiratory distress Auscultation: lungs clear to auscultation bilaterally Cardiovascular: Rate/Rhythm: regular rate and regular rhythm Vessels: posterior tibial pulses present, dorsalis pedis pulses present and radial pulses present; + abnormal peripheral pulses Extremities: normal capillary refill; no edema Gastrointestinal (Abdomen): Inspection/Auscultation: abdomen normal to inspection and normal bowel sounds Percussion/Palpation: abdomen soft; abdomen nontender Musculoskeletal: no cyanosis or clubbing, extremities motor strength 5/5 Skin: no rashes, warm and dry Neurologic: moves all extremities and awake; no focal motor deficits and not confused Psychiatric: A+Ox3, euthymic affect Eye Contact: good eye contact Results & Data ([facility]) Vital Signs (Past 12 Hours) Vital Signs Temp Pulse Pulse Resp BP Pulse Ox O2 Del Method 07/17/22 07:17 36.6 C 70 17 168/76 H 97 Room Air 07/17/22 03:15 36.7 C 73 16 142/66 H 97 Room Air 07/16/22 22:02 70 07/16/22 22:29 36.5 C 74 16 205/99 H 98 Room Air
--- NOTE | 2022-07-17 10:00 | Pharmacy Report ---
- Date of Service July 17, 2022 - Pharmacy CVA/TIA Medication Review Medications to Prevent Stroke handout has been added to the patients discharge packet. Antiplatelet(s) * Neurology recommending dual antiplatelet therapy (aspirin 81 mg + plavix 75 mg daily). Plan to transition to Plavix monotherapy after 3 weeks. Cholesterol * High intensity statin: atorvastatin 40 mg daily added to medication regimen DVT Prophylaxis * SCDs ordered Therapeutic Anticoagulation * No history of Afib per notes * Consultation with vascular surgery ordered/pending Type 2 Diabetes * Patient does not have T2DM
[2022-07-17] MEDS: MECLIZINE HCL 25 MG TAB PO SCH ×2 (12:42→18:17)
--- NOTE | 2022-07-17 12:54 | Hospitalist Progress Note ---
Date of Service July 17, 2022 Assessment & Plan (1) Hypertensive emergency: Plan: Presented with systolic blood pressure more than 220 on admission Received intravenous labetalol x2 of 10 mg Received losartan 50 mg and amlodipine 5 mg Blood pressure improved and today it is 155/71 Patient is symptomatically much better Blood pressure is better controlled Standing blood pressure seems to be elevated with dizziness Will not give any additional blood pressure medicine now Ongoing severe dizziness with ambulation Likely secondary to cerebellar stroke Will try meclizine 25 mg every 6 hourly [id number] for a day Will continue physical therapy Until the dizziness is reasonably controlled she will be discharged (2) Cerebellar stroke: Plan: Admit to PCU Patient presenting from home with reports of headache, dizziness, nausea, difficulty ambulating x 6 days In the ED, patient was found to be significantly hypertensive with BP 242/103 Patient received labetalol 10 mg IV x 2 doses with minimal improvement. Will give hydralazine 10 mg IV and losartan 50 mg p.o. (patient's home dose) --> some improvement in BP, will give another dose of hydralazine and give amlodipine 5mg now. Resume Losartan 50mg and Amlodipine 5mg tomorrow AM. PRN hydralazine SBP > 195 Head/Neck CTA: 1. Small age-indeterminate lacunar infarcts of the left cerebellar hemisphere measure up to approximately 1.4 cm. Additional age-indeterminate lacunar infarct of the right caudate nucleus, favored to be chronic. 2. Age-indeterminate occlusion of the distal left vertebral artery with areas of reconstitution noted within the left PICA. Findings are likely secondary to atherosclerotic vascular disease. An underlying dissection would be difficult to exclude. 3. 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 4. High-grade stenosis within the proximal right ICA. 5. Mild to moderate stenosis throughout the middle and posterior cerebral arteries. Brain MRI/MRA-small acute left cerebellar infarct measuring up to approximately 1.4 cm Echo-LV is normal in size, mild concentric LVH, focal thickening of the basal septum with no evidence of left ventricular outflow obstruction, septal motion is consistent with conduction abnormality, no regional wall motion abnormalities, EF 55 to 60%, grade 1 diastolic dysfunction, aortic valve sclerosis mild without significant aortic valve stenosis, interatrial septum is intact with no evidence of atrial septal defect and injection of contrast documented no interatrial shunt Neurology consult -Case discussed with Dr. Dexter via tiger text-appreciate input and recommendation Start Plavix 75mg, ASA 81mg, atorvastatin 40mg Denies any neurological symptoms Dizziness seems to be improving Has had physical therapy and did notice to have dizziness during the therapy Systolic blood pressure goes up to 170 with standing with dizziness Will monitor Continued physical therapy and the dizziness is expected to (3) Lacunar stroke: (4) Carotid stenosis, right: Plan: Consult vascular re: high grade proximal right ICA stenosis Have outpatient vascular surgery evaluation the patient lives before Sunday Likely medical management Appreciate vascular surgery input and recommendation (5) Trigeminal neuralgia: Plan: Continue carbamazepine DVT PROPHYLAXIS SCDs Discussed with the son and the patient Plan Likely discharge tomorrow Admission and Anticipated Discharge Date Admission Date: July 14, 2022 Subjective 07/15/2022 The patient was seen and examined in telemetry unit She has been feeling much better Dizziness has improved and the blood pressure seems to be controlled Denies any other neurological symptoms 07/16/2022 The patient was seen and examined in telemetry unit She has been feeling much better Only has minimal dizziness with ambulation and standing Will get orthostatic vitals Will start very small dose of Antivert as needed 07/17/2022 The patient was seen and examined in telemetry unit She complains to have severe dizziness with standing and ambulating Did not have any nausea no vomiting associated with it Could not participate in physical therapy Review of Systems Review of Systems: All systems reviewed and are unremarkable as noted Physical Exam Physical Exam: Lying in bed without any acute distress Constitutional: average body habitus; not ill appearing Eyes: PERRL, conjunctivae normal, anicteric sclerae ENMT: external ear and nose normal, oropharynx normal Neck: trachea midline, no thyromegaly Respiratory: no respiratory distress Auscultation: lungs clear to auscultation bilaterally Cardiovascular: Rate/Rhythm: regular rate and regular rhythm; not tachycardic Heart Sounds: normal S1 and normal S2; no murmur Extremities: no edema Gastrointestinal (Abdomen): Inspection/Auscultation: normal bowel sounds; abdomen not distended Percussion/Palpation: abdomen soft; abdomen nontender Neurologic: normal touch/pain/proprioception and moves all extremities; no focal motor deficits Psychiatric: A+Ox3, euthymic affect Lymphatic: no cervical or axillary lymphadenopathy Results & Data Results & Data ([facility]) Vital Signs (Past 12 Hours) Vital Signs Temp Pulse Pulse Resp BP Pulse Ox O2 Del Method 07/17/22 11:57 36.6 C 75 18 136/75 97 Room Air 07/17/22 07:30 71 07/17/22 07:17 36.6 C 70 17 168/76 H 97 Room Air 07/17/22 03:15 36.7 C 73 16 142/66 H 97 Room Air Laboratory Results Short CBC 07/17/22 Range/Units 06:03 WBC 6.23 (4.8-10.8) K/ul Hgb 11.5 L (12.0-16.0) g/dl Hct 33.5 L (34.1-44.9) % Plt Count 168 (130-400) K/uL BMP 07/17/22 06:03 Sodium 136 Potassium 4.5 D Chloride 102 Carbon Dioxide 34 H BUN 19 Creatinine 0.81 Glucose 99 Calcium 8.8 Medications Administered Current Inpatient Medications Acetaminophen (Acetaminophen 500 Mg Tab) 1,000 mg PO TID PRN PRN Reason: Pain Stop: 08/14/22 10:03 Last Admin: 07/16/22 15:59 Dose: 1,000 mg Amlodipine Besylate (Amlodipine [facility]ylate 5 Mg Tab) [facility] Stop[facility] 08/14/22 08:59 Last Admin: 07/17/22 08:08 Dose: 5 mg Aspirin (Aspirin 81 Mg Ectab) 81 mg PO DAILY [facility] Stop: 08/14/22 08:59 Last Admin: 07/17/22 08:08 Dose: 81 mg Atorvastatin Calcium (Atorvastatin 40 Mg Tab) 40 mg PO QAM [facility] Stop: 08/13/22 19:14 Last Admin: 07/17/22 08:08 Dose: 40 mg Carbamazepine (Carbamazepine 200 Mg Tablet) 200 mg PO BID [facility] Stop: 08/13/22 20:59 Last Admin: 07/17/22 08:08 Dose: 200 mg Clopidogrel Bisulfate (Clopidogrel Bisulfate 75 Mg Tab) [facility] [place] [facility] Stop: 08/14/22 11:59 Last Admin: 07/17/22 08:08 Dose: 75 mg Hydralazine HCl (Hydralazine Hcl 20 Mg/Ml Vial) 5 mg IV Q6H PRN PRN Reason: HTN Stop: 08/13/22 18:44 Last Admin: 07/16/22 22:39 Dose: 5 mg Losartan Potassium (Losartan Potassium 50 Mg Tab) [facility] [place] [facility] Stop: 08/14/22 08:59 Last Admin: 07/17/22 08:07 Dose: 50 mg Meclizine HCl (Meclizine Hcl 25 Mg Tab) 25 mg PO Q6H [facility] Stop: 08/16/22 12:29 Last Admin: 07/17/22 12:42 Dose: 25 mg Miscellaneous Information (Pharmacist Discharge Med Rec Consult) 1 each N/A UD PRN PRN Reason: Consult Stop: 08/13/22 18:44 Ondansetron HCl (Ondansetron Inj 2 Mg/Ml 2 Ml Vial) 4 mg IV Q6H PRN PRN Reason: Nausea And Vomiting Stop: 08/13/22 17:33 Last Admin: 07/15/22 10:21 Dose: 4 mg Pantoprazole Sodium (Pantoprazole 40 Mg Tab) [facility] [place] [facility] Stop: 08/14/22 16:29 Last Admin: 07/17/22 08:08 Dose: 40 mg
[2022-07-17] MEDS: ONDANSETRON INJ 2 MG/ML 2 ML VIAL IV PRN (15:30)
[2022-07-17] MEDS: ACETAMINOPHEN 500 MG TAB PO PRN (19:26)
[2022-07-18] MEDS: MECLIZINE HCL 25 MG TAB PO SCH ×4 (00:39→17:59)
[2022-07-18] MEDS: PANTOprazole 40 MG TAB PO SCH (07:46)
[2022-07-18] MEDS: carBAMazepine 200 MG TABLET PO SCH ×2 (07:46→20:17)
[2022-07-18] MEDS: ASPIRIN 81 MG ECTAB PO SCH (07:46)
[2022-07-18] MEDS: amLODIPine BESYLATE 5 MG TAB PO SCH (07:46)
[2022-07-18] MEDS: CLOPIDOGREL BISULFATE 75 MG TAB PO SCH (07:46)
[2022-07-18] MEDS: LOSARTAN POTASSIUM 50 MG TAB PO SCH (07:46)
[2022-07-18] MEDS: ATORVASTATIN 40 MG TAB PO SCH (07:46)
--- NOTE | 2022-07-18 16:12 | Hospitalist Progress Note ---
Date of Service July 18, 2022 Assessment & Plan (1) Hypertensive emergency: Plan: GettingPresented with systolic blood pressure more than 220 on admission Received intravenous labetalol x2 of 10 mg Received losartan 50 mg and amlodipine 5 mg Blood pressure improved and today it is 155/71 Patient is symptomatically much better Blood pressure is better controlled Standing blood pressure seems to be elevated with dizziness Will not give any additional blood pressure medicine now Noted to have recent blood pressure on standing as of yesterday that is 07/17/2022 Noted to be improving today Ongoing severe dizziness with ambulation Likely secondary to cerebellar stroke Will try meclizine 25 mg every 6 hourly [id number] for a day Will continue physical therapy Until the dizziness is reasonably controlled she will be discharged PT recommended rehab and the patient is agreeable to go to rehab for short-term We will continue meclizine routinely for today (2) Cerebellar stroke: Plan: Admit to PCU Patient presenting from home with reports of headache, dizziness, nausea, difficulty ambulating x 6 days In the ED, patient was found to be significantly hypertensive with BP 242/103 Patient received labetalol 10 mg IV x 2 doses with minimal improvement. Will give hydralazine 10 mg IV and losartan 50 mg p.o. (patient's home dose) --> some improvement in BP, will give another dose of hydralazine and give amlodipine 5mg now. Resume Losartan 50mg and Amlodipine 5mg tomorrow AM. PRN hydralazine SBP > 195 Head/Neck CTA: 1. Small age-indeterminate lacunar infarcts of the left cerebellar hemisphere measure up to approximately 1.4 cm. Additional age-indeterminate lacunar infarct of the right caudate nucleus, favored to be chronic. 2. Age-indeterminate occlusion of the distal left vertebral artery with areas of reconstitution noted within the left PICA. Findings are likely secondary to atherosclerotic vascular disease. An underlying dissection would be difficult to exclude. 3. 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 4. High-grade stenosis within the proximal right ICA. 5. Mild to moderate stenosis throughout the middle and posterior cerebral a rteries. Brain MRI/MRA-small acute left cerebellar infarct measuring up to approximately 1.4 cm Echo-LV is normal in size, mild concentric LVH, focal thickening of the basal septum with no evidence of left ventricular outflow obstruction, septal motion is consistent with conduction abnormality, no regional wall motion abnormalities, EF 55 to 60%, grade 1 diastolic dysfunction, aortic valve sclerosis mild without significant aortic valve stenosis, interatrial septum is intact with no evidence of atrial septal defect and injection of contrast documented no interatrial shunt Neurology consult -Case discussed with Dr. Dexter via tiger text-appreciate input and recommendation Start Plavix 75mg, ASA 81mg, atorvastatin 40mg Denies any neurological symptoms Dizziness seems to be improving Has had physical therapy and did notice to have dizziness during the therapy Systolic blood pressure goes up to 170 with standing with dizziness Will monitor Continued physical therapy and the dizziness is expected to (3) Lacunar stroke: (4) Carotid stenosis, right: Plan: Consult vascular re: high grade proximal right ICA stenosis Have outpatient vascular surgery evaluation the patient lives before Sunday Likely medical management Appreciate vascular surgery input and recommendation (5) Trigeminal neuralgia: Plan: Continue carbamazepine DVT PROPHYLAXIS SCDs Will add heparin subcu Discussed with the son and the patient Plan Likely discharge tomorrow Admission and Anticipated Discharge Date Admission Date: July 14, 2022 Subjective 07/15/2022 The patient was seen and examined in telemetry unit She has been feeling much better Dizziness has improved and the blood pressure seems to be controlled Denies any other neurological symptoms 07/16/2022 The patient was seen and examined in telemetry unit She has been feeling much better Only has minimal dizziness with ambulation and standing Will get orthostatic vitals Will start very small dose of Antivert as needed 07/17/2022 The patient was seen and examined in telemetry unit She complains to have severe dizziness with standing and ambulating Did not have any nausea no vomiting associated with it Could not participate in physical therapy 07/18/2022 The patient was seen and examined in telemetry unit She continues to have dizziness with ambulation and standing Has been getting physical therapy and recommended to go to rehab for short-term Has been getting meclizine routinely every 6 hourly with minimal improvement Review of Systems Review of Systems: All systems reviewed and are unremarkable as noted Physical Exam Physical Exam: Lying in bed without any acute distress Constitutional: average body habitus; not ill appearing Eyes: PERRL, conjunctivae normal, anicteric sclerae ENMT: external ear and nose normal, oropharynx normal Neck: trachea midline, no thyromegaly Respiratory: no respiratory distress Auscultation: lungs clear to auscultation bilaterally Cardiovascular: Rate/Rhythm: regular rate and regular rhythm; not tachycardic Heart Sounds: normal S1 and normal S2; no murmur Extremities: no edema Gastrointestinal (Abdomen): Inspection/Auscultation: normal bowel sounds; abdomen not distended Percussion/Palpation: abdomen soft; abdomen nontender Musculoskeletal: No acute pain involving any joint Neurologic: normal touch/pain/proprioception and moves all extremities; no focal motor deficits Psychiatric: A+Ox3, euthymic affect Lymphatic: no cervical or axillary lymphadenopathy Results & Data Results & Data ([facility]) Vital Signs (Past 12 Hours) Vital Signs Temp Pulse Pulse Resp BP BP Pulse Ox 07/18/22 15:52 36.5 C 73 19 149/69 H 96 07/18/22 10:56 36.5 C 69 19 141/67 H 97 07/18/22 10:04 158/76 H 07/18/22 07:45 64 07/18/22 06:28 36.6 C 64 18 165/65 H 97 O2 Del Method 07/18/22 15:52 Room Air 07/18/22 10:56 Room Air 07/18/22 10:04 07/18/22 07:45 07/18/22 06:28 Room Air Medications Administered Current Inpatient Medications Acetaminophen (Acetaminophen 500 Mg Tab) 1,000 mg PO TID PRN PRN Reason: Pain Stop: 08/14/22 10:03 Last Admin: 07/17/22 19:26 Dose: 1,000 mg Amlodipine Besylate (A[facility]odipine Besylate 5 Mg Tab) [facility] [place] Stop: 08/14/22 08:59 Last Admin: 07/18/22 07:46 Dose: 5 mg Aspirin (Aspirin 81 Mg Ectab) 81 mg PO DAILY DENISA Stop: 08/14/22 08:59 Last Admin: 07/18/22 07:46 Dose: 81 mg Atorvastatin Calcium (Atorvastatin 40 Mg Tab) 40 mg PO QAM [facility] Stop: 08/13/22 19:14 Last Admin: 07/18/22 07:46 Dose: 40 mg Carbamazepine (Carbamazepine 200 Mg Tablet) 200 mg PO BID [facility] Stop: 08/13/22 20:59 Last Admin: 07/18/22 07:46 Dose: 200 mg Clopidogrel Bisulfate (Clopidogrel Bisulfate 75 Mg Tab) 75 mg PO QAM [facility] Stop: 08/14/22 11:59 Last Admin: 07/18/22 07:46 Dose: 75 mg Hydralazine HCl (Hydralazine Hcl 20 Mg/Ml Vial) 5 mg IV Q6H PRN PRN Reason: HTN Stop: 08/13/22 18:44 Last Admin: 07/16/22 22:39 Dose: 5 mg Losartan Potassium (Losartan Potassium 50 Mg Tab) [facility] [place] Stop: 08/14/22 08:59 Last Admin: 07/18/22 07:46 Dose: 50 mg Meclizine HCl (Meclizine Hcl 25 Mg Tab) 25 mg PO Q6H [facility] Stop: 08/16/22 12:29 Last Admin: 07/18/22 12:31 Dose: 25 mg Miscellaneous Information (Pharmacist Discharge Med Rec Consult) 1 each N/A UD PRN PRN Reason: Consult Stop: 08/13/22 18:44 Ondansetron HCl (Ondansetron Inj 2 Mg/Ml 2 Ml Vial) 4 mg IV Q6H PRN PRN Reason: Nausea And Vomiting Stop: 08/13/22 17:33 Last Admin: 07/17/22 15:30 Dose: 4 mg Pantoprazole Sodium (Pantoprazole 40 Mg Tab) 40 mg PO [facility] Stop: 08/14/22 16:29 Last Admin: 07/18/22 07:46 Dose: 40 mg
[2022-07-18] MEDS: HEPARIN SOD 5,000 UNIT/0.5 ML VIAL SQ SCH (17:59)
[2022-07-19] MEDS: MECLIZINE HCL 25 MG TAB PO SCH ×3 (00:15→12:30)
[2022-07-19] MEDS: HEPARIN SOD 5,000 UNIT/0.5 ML VIAL SQ SCH ×2 (06:07→18:05)
[2022-07-19 06:38] LABS: Calcium 8.5 mg/dl (8.5-10.1); Potassium 4.1 mmol/L (3.5-5.1)
[2022-07-19 06:44] LABS: BUN Creatinine Ratio 31.3 (10-20); Creatinine Clr Calc Pharmacy 37.8 ml/min; Est GFR (African American) 73.5 ml/min; Est GFR (Non-African American) 63.4 ml/min
[2022-07-19] MEDS: ASPIRIN 81 MG ECTAB PO SCH (08:43)
[2022-07-19] MEDS: LOSARTAN POTASSIUM 50 MG TAB PO SCH (08:43)
[2022-07-19] MEDS: amLODIPine BESYLATE 5 MG TAB PO SCH (08:43)
[2022-07-19] MEDS: ATORVASTATIN 40 MG TAB PO SCH (08:43)
[2022-07-19] MEDS: CLOPIDOGREL BISULFATE 75 MG TAB PO SCH (08:44)
[2022-07-19] MEDS: carBAMazepine 200 MG TABLET PO SCH ×2 (08:44→20:36)
[2022-07-19] MEDS: PANTOprazole 40 MG TAB PO SCH (08:44)
--- NOTE | 2022-07-19 12:46 | Hospitalist Progress Note ---
Date of Service July 19, 2022 Assessment & Plan (1) Hypertensive emergency: Plan: GettingPresented with systolic blood pressure more than 220 on admission Received intravenous labetalol x2 of 10 mg Received losartan 50 mg and amlodipine 5 mg Blood pressure improved and today it is 155/71 Patient is symptomatically much better Blood pressure is better controlled Standing blood pressure seems to be elevated with dizziness Will not give any additional blood pressure medicine now Noted to have recent blood pressure on standing as of yesterday that is 07/17/2022 Blood pressure is controlled and seems to be in the lower side today at 109/72 Ongoing severe dizziness with ambulation Likely secondary to cerebellar stroke Will try meclizine 25 mg every 6 hourly [id number] for a day Will continue physical therapy Until the dizziness is reasonably controlled she will be discharged PT recommended rehab and the patient is agreeable to go to rehab for short-term Dizziness is not much better-we will try Gabe Meclizine has been changed to as needed (2) Cerebellar stroke: Plan: Admit to PCU Patient presenting from home with reports of headache, dizziness, nausea, difficulty ambulating x 6 days In the ED, patient was found to be significantly hypertensive with BP 242/103 Patient received labetalol 10 mg IV x 2 doses with minimal improvement. Will give hydralazine 10 mg IV and losartan 50 mg p.o. (patient's home dose) --> some improvement in BP, will give another dose of hydralazine and give amlodipine 5mg now. Resume Losartan 50mg and Amlodipine 5mg tomorrow AM. PRN hydralazine SBP > 195 Head/Neck CTA: 1. Small age-indeterminate lacunar infarcts of the left cerebellar hemisphere measure up to approximately 1.4 cm. Additional age-indeterminate lacunar infarct of the right caudate nucleus, favored to be chronic. 2. Age-indeterminate occlusion of the distal left vertebral artery with areas of reconstitution noted within the left PICA. Findings are likely secondary to atherosclerotic vascular disease. An underlying dissection would be difficult to exclude. 3. 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 4. High-grade stenosis within the proximal right ICA. 5. Mild to moderate stenosis throughout the middle and posterior cerebral arteries. Brain MRI/MRA-small acute left cerebellar infarct measuring up to approximately 1.4 cm Echo-LV is normal in size, mild concentric LVH, focal thickening of the basal septum with no evidence of left ventricular outflow obstruction, septal motion is consistent with conduction abnormality, no regional wall motion abnormalities, EF 55 to 60%, grade 1 diastolic dysfunction, aortic valve sclerosis mild without significant aortic valve stenosis, interatrial septum is intact with no evidence of atrial septal defect and injection of contrast documented no interatrial shunt Neurology consult -Case discussed with Dr. Dexter via tiger text-appreciate input and recommendation Start Plavix 75mg, ASA 81mg, atorvastatin 40mg Denies any neurological symptoms Dizziness seems to be improving Has had physical therapy and did notice to have dizziness during the therapy Systolic blood pressure goes up to 170 with standing with dizziness Will need to go to short-term rehab for ongoing dizziness (3) Lacunar stroke: (4) Carotid stenosis, right: Plan: Consult vascular re: high grade proximal right ICA stenosis Have outpatient vascular surgery evaluation the patient lives before Sunday Likely medical management Appreciate vascular surgery input and recommendation (5) Trigeminal neuralgia: Plan: Continue carbamazepine DVT PROPHYLAXIS SCDs Will add heparin subcu Discussed with the son and the patient Plan Likely discharge tomorrow Admission and Anticipated Discharge Date Admission Date: July 14, 2022 Subjective 07/15/2022 The patient was seen and examined in telemetry unit She has been feeling much better Dizziness has improved and the blood pressure seems to be controlled Denies any other neurological symptoms 07/16/2022 The patient was seen and examined in telemetry unit She has been feeling much better Only has minimal dizziness with ambulation and standing Will get orthostatic vitals Will start very small dose of Antivert as needed 07/17/2022 The patient was seen and examined in telemetry unit She complains to have severe dizziness with standing and ambulating Did not have any nausea no vomiting associated with it Could not participate in physical therapy 07/18/2022 The patient was seen and examined in telemetry unit She continues to have dizziness with ambulation and standing Has been getting physical therapy and recommended to go to rehab for short-term Has been getting meclizine routinely every 6 hourly with minimal improvement 07/19/2022 The patient was seen and examined in telemetry unit She is a little better but he still has significant dizziness with ambulation Rapid neck movements produced dizziness as well Denies any other significant symptoms Review of Systems Review of Systems: All systems reviewed and are unremarkable as noted Physical Exam Physical Exam: Sitting on a chair without any acute distress Constitutional: average body habitus; not ill appearing Eyes: PERRL, conjunctivae normal, anicteric sclerae ENMT: external ear and nose normal, oropharynx normal Neck: trachea midline, no thyromegaly Respiratory: no respiratory distress Auscultation: lungs clear to auscultation bilaterally Cardiovascular: Rate/Rhythm: regular rate and regular rhythm; not tachycardic Heart Sounds: normal S1 and normal S2; no murmur Extremities: no edema Gastrointestinal (Abdomen): Inspection/Auscultation: normal bowel sounds; abdomen not distended Percussion/Palpation: abdomen soft; abdomen nontender Musculoskeletal: No acute arthritis in any joint Neurologic: normal touch/pain/proprioception and moves all extremities; no focal motor deficits Psychiatric: A+Ox3, euthymic affect Lymphatic: no cervical or axillary lymphadenopathy Results & Data Results & Data ([facility]) Vital Signs (Past 12 Hours) Vital Signs Temp Pulse Pulse Pulse Resp BP BP 07/19/22 11:37 36.5 C 68 16 109/72 07/19/22 08:14 36.7 C 73 16 149/66 H 07/19/22 03:42 36.4 C L 68 20 178/74 H 07/19/22 00:46 69 Pulse Ox O2 Del Method 07/19/22 11:37 98 Room Air 07/19/22 08:14 97 Room Air 07/19/22 03:42 96 Room Air 07/19/22 00:46 Laboratory Results [facility] 07/19/22 05:43 Sodium 132 L Potassium 4.1 Chloride 98 Carbon Dioxide 30 BUN 26 H Creatinine 0.83 Glucose 96 Calcium 8.5 Medications Administered Current Inpatient Medications Acetaminophen (Acetaminophen 500 Mg Tab) 1,000 mg PO TID PRN PRN Reason: Pain Stop: 08/14/22 10:03 Last Admin: 07/17/22 19:26 Dose: 1,000 mg Amlodipine Besylate (A[facility]odipine Besylate 5 Mg Tab) [facility] [place] Stop: 08/14/22 08:59 Last Admin: 07/19/22 08:43 Dose: 5 mg Aspirin (Aspirin 81 Mg Ectab) 81 mg PO DAILY DENISA Stop: 08/14/22 08:59 Last Admin: 07/19/22 08:43 Dose: 81 mg Atorvastatin Calcium (Atorvastatin 40 Mg Tab) 40 mg PO QAM [facility] Stop: 08/13/22 19:14 Last Admin: 07/19/22 08:43 Dose: 40 mg Carbamazepine (Carbamazepine 200 Mg Tablet) 200 mg PO BID [facility] Stop: 08/13/22 20:59 Last Admin: 07/19/22 08:44 Dose: 200 mg Clopidogrel Bisulfate (Clopidogrel Bisulfate 75 Mg Tab) [facility] [place] Stop: 08/14/22 11:59 Last Admin: 07/19/22 08:44 Dose: 75 mg Heparin Sodium (Porcine) (Heparin Sod 5,000 Unit/0.5 Ml Vial) 5,000 units SQ Q12H [facility] Stop: 08/17/22 17:59 Last Admin: 07/19/22 06:07 Dose: 5,000 units Hydralazine HCl (Hydralazine Hcl 20 Mg/Ml Vial) 5 mg IV Q6H PRN PRN Reason: HTN Stop: 08/13/22 18:44 Last Admin: 07/16/22 22:39 Dose: 5 mg Losartan Potassium (Losartan Potassium 50 Mg Tab) 50 mg PO [facility] Stop: 08/14/22 08:59 Last Admin: 07/19/22 08:43 Dose: 50 mg Meclizine HCl (Meclizine Hcl 25 Mg Tab) 25 mg PO Q6H PRN PRN Reason: Dizziness or Vertigo Stop: 08/16/22 12:29 Ondansetron HCl (Ondansetron Inj 2 Mg/Ml 2 Ml Vial) 4 mg IV Q6H PRN PRN Reason: Nausea And Vomiting Stop: 08/13/22 17:33 Last Admin: 07/17/22 15:30 Dose: 4 mg Pantoprazole Sodium (Pantoprazole 40 Mg Tab) 40 mg PO [facility] Stop: 08/14/22 16:29 Last Admin: 07/19/22 08:44 Dose: 40 mg
[2022-07-19] MEDS: ACETAMINOPHEN 500 MG TAB PO PRN (14:50)
[2022-07-19] MEDS: ONDANSETRON INJ 2 MG/ML 2 ML VIAL IV PRN (14:50)
[2022-07-19] MEDS: MECLIZINE HCL 25 MG TAB PO PRN (20:37)
[2022-07-20] MEDS: HEPARIN SOD 5,000 UNIT/0.5 ML VIAL SQ SCH ×2 (06:43→18:05)
[2022-07-20] MEDS: amLODIPine BESYLATE 5 MG TAB PO SCH (08:35)
[2022-07-20] MEDS: carBAMazepine 200 MG TABLET PO SCH ×2 (08:36→21:37)
[2022-07-20] MEDS: CLOPIDOGREL BISULFATE 75 MG TAB PO SCH (08:36)
[2022-07-20] MEDS: PANTOprazole 40 MG TAB PO SCH (08:37)
[2022-07-20] MEDS: ATORVASTATIN 40 MG TAB PO SCH (08:37)
[2022-07-20] MEDS: ASPIRIN 81 MG ECTAB PO SCH (08:37)
[2022-07-20] MEDS: LOSARTAN POTASSIUM 50 MG TAB PO SCH (08:37)
[2022-07-20] MEDS: MECLIZINE HCL 25 MG TAB PO PRN (08:37)
--- NOTE | 2022-07-20 10:20 | Hospitalist Progress Note ---
Date of Service July 20, 2022 Assessment & Plan (1) Hypertensive emergency: Plan: GettingPresented with systolic blood pressure more than 220 on admission Received intravenous labetalol x2 of 10 mg Received losartan 50 mg and amlodipine 5 mg Blood pressure improved and today it is 155/71 Patient is symptomatically much better Blood pressure is better controlled Standing blood pressure seems to be elevated with dizziness Will not give any additional blood pressure medicine now Noted to have recent blood pressure on standing as of yesterday that is 07/17/2022 Blood pressure is controlled and seems to be in the lower side today at 109/72 Blood pressure remains stable with current medications Ongoing severe dizziness with ambulation Likely secondary to cerebellar stroke Will try meclizine 25 mg every 6 hourly [id number] for a day Will continue physical therapy Until the dizziness is reasonably controlled she will be discharged PT recommended rehab and the patient is agreeable to go to rehab for short-term Dizziness is not much better-we will try Gabe Meclizine has been changed to as needed Dizziness and nausea are much better today Likely to be discharged to [facility] this afternoon (2) Cerebellar stroke: Plan: Admit to PCU Patient presenting from home with reports of headache, dizziness, nausea, difficulty ambulating x 6 days In the ED, patient was found to be significantly hypertensive with BP 242/103 Patient received labetalol 10 mg IV x 2 doses with minimal improvement. Will give hydralazine 10 mg IV and losartan 50 mg p.o. (patient's home dose) --> some improvement in BP, will give another dose of hydralazine and give amlodipine 5mg now. Resume Losartan 50mg and Amlodipine 5mg tomorrow AM. PRN hydralazine SBP > 195 Head/Neck CTA: 1. Small age-indeterminate lacunar infarcts of the left cerebellar hemisphere measure up to approximately 1.4 cm. Additional age-indeterminate lacunar infarct of the right caudate nucleus, favored to be chronic. 2. Age-indeterminate occlusion of the distal left vertebral artery with areas of reconstitution noted within the left PICA. Findings are likely secondary to atherosclerotic vascular disease. An underlying dissection would be difficult to exclude. 3. 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 4. High-grade stenosis within the proximal right ICA. 5. Mild to moderate stenosis throughout the middle and posterior cerebral arteries. Brain MRI/MRA-small acute left cerebellar infarct measuring up to approximately 1.4 cm Echo-LV is normal in size, mild concentric LVH, focal thickening of the basal septum with no evidence of left ventricular outflow obstruction, septal motion is consistent with conduction abnormality, no regional wall motion abnormalities, EF 55 to 60%, grade 1 diastolic dysfunction, aortic valve sclerosis mild without significant aortic valve stenosis, interatrial septum is intact with no evidence of atrial septal defect and injection of contrast documented no interatrial shunt Neurology consult -Case discussed with Dr. Dexter via tiger text-appreciate input and recommendation Start Plavix 75mg, ASA 81mg, atorvastatin 40mg Denies any neurological symptoms Dizziness seems to be improving Has had physical therapy and did notice to have dizziness during the therapy Systolic blood pressure goes up to 170 with standing with dizziness Will need to go to short-term rehab for ongoing dizziness Will not go for any Gabe maneuver given the complexity of stenosis involving the neck arteries (3) Lacunar stroke: (4) Carotid stenosis, right: Plan: Consult vascular re: high grade proximal right ICA stenosis Have outpatient vascular surgery evaluation the patient lives before Sunday Likely medical management Appreciate vascular surgery input and recommendation (5) Trigeminal neuralgia: Plan: Continue carbamazepine DVT PROPHYLAXIS SCDs Will add heparin subcu Discussed with the son and the patient Plan Likely discharge tomorrow Admission and Anticipated Discharge Date Admission Date: July 14, 2022 Subjective 07/15/2022 The patient was seen and examined in telemetry unit She has been feeling much better Dizziness has improved and the blood pressure seems to be controlled Denies any other neurological symptoms 07/16/2022 The patient was seen and examined in telemetry unit She has been feeling much better Only has minimal dizziness with ambulation and standing Will get orthostatic vitals Will start very small dose of Antivert as needed 07/17/2022 The patient was seen and examined in telemetry unit She complains to have severe dizziness with standing and ambulating Did not have any nausea no vomiting associated with it Could not participate in physical therapy 07/18/2022 The patient was seen and examined in telemetry unit She continues to have dizziness with ambulation and standing Has been getting physical therapy and recommended to go to rehab for short-term Has been getting meclizine routinely every 6 hourly with minimal improvement 07/19/2022 The patient was seen and examined in telemetry unit She is a little better but he still has significant dizziness with ambulation Rapid neck movements produced dizziness as well Denies any other significant symptoms 07/20/2022 The patient was seen and examined in telemetry unit She has been feeling a little better today and does not have significant dizziness with ambulation She feels that she could be discharged today She denies any other significant symptom Review of Systems Review of Systems: All systems reviewed and are unremarkable as noted Physical Exam Physical Exam: Lying in bed without any acute distress Constitutional: average body habitus; not ill appearing Eyes: PERRL, conjunctivae normal, anicteric sclerae ENMT: external ear and nose normal, oropharynx normal Neck: trachea midline, no thyromegaly Respiratory: no respiratory distress Auscultation: lungs clear to auscultation bilaterally Cardiovascular: Rate/Rhythm: regular rate and regular rhythm; not tachycardic Heart Sounds: normal S1 and normal S2; no murmur Extremities: no edema Gastrointestinal (Abdomen): Inspection/Auscultation: normal bowel sounds; abdomen not distended Percussion/Palpation: abdomen soft; abdomen nontender Musculoskeletal: No acute arthritis involving any joint Neurologic: normal touch/pain/proprioception and moves all extremities; no focal motor deficits Psychiatric: A+Ox3, euthymic affect Lymphatic: no cervical or axillary lymphadenopathy Results & Data Results & Data ([facility]) Vital Signs (Past 12 Hours) Vital Signs Temp Pulse Pulse Resp BP BP Pulse Ox 07/20/22 07:28 36.5 C 67 18 138/73 97 07/20/22 03:00 36.5 C 67 18 162/70 H 97 07/19/22 23:05 66 07/19/22 23:00 36.4 C L 72 20 167/78 H 97 O2 Del Method 07/20/22 07:28 Room Air 07/20/22 03:00 Room Air 07/19/22 23:05 07/19/22 23:00 Room Air Medications Administered Current Inpatient Medications Acetaminophen (Acetaminophen 500 Mg Tab) 1,000 mg PO TID PRN PRN Reason: Pain Stop: 08/14/22 10:03 Last Admin: 07/19/22 14:50 Dose: 1,000 mg Amlodipine Besylate (Amlodipine Besylate 5 Mg Tab) 5 mg PO QAM DENISA Stop: 08/14/22 08:59 Last Admin: 07/20/22 08:35 Dose: 5 mg Aspirin (Aspirin 81 Mg Ectab) 81 mg PO DAILY [facility] Stop: 08/14/22 08:59 Last Admin: 07/20/22 08:37 Dose: 81 mg Atorvastatin Calcium (Atorvastatin 40 Mg Tab) 40 mg PO [facility] Stop: 08/13/22 19:14 Last Admin: 07/20/22 08:37 Dose: 40 mg Carbamazepine (Carbamazepine 200 Mg Tablet) 200 mg PO BID [facility] Stop: 08/13/22 20:59 Last Admin: 07/20/22 08:36 Dose: 200 mg Clopidogrel Bisulfate (Clopidogrel Bisulfate 75 Mg Tab) 75 mg PO [facility] Stop: 08/14/22 11:59 Last Admin: 07/20/22 08:36 Dose: 75 mg Heparin Sodium (Porcine) (Heparin Sod 5,000 Unit/0.5 Ml Vial) 5,000 units SQ Q12H [facility] Stop: 08/17/22 17:59 Last Admin: 07/20/22 06:43 Dose: 5,000 units Hydralazine HCl (Hydralazine Hcl 20 Mg/Ml Vial) 5 mg IV Q6H PRN PRN Reason: HTN Stop: 08/13/22 18:44 Last Admin: 07/16/22 22:39 Dose: 5 mg Losartan Potassium (Losartan Potassium 50 Mg Tab) 50 mg PO [facility] Stop: 08/14/22 08:59 Last Admin: 07/20/22 08:37 Dose: 50 mg Meclizine HCl (Meclizine Hcl 25 Mg Tab) 25 mg PO Q6H PRN PRN Reason: Dizziness or Vertigo Stop: 08/16/22 12:29 Last Admin: 07/20/22 08:37 Dose: 25 mg Ondansetron HCl (Ondansetron Inj 2 Mg/Ml 2 Ml Vial) 4 mg IV Q6H PRN PRN Reason: Nausea And Vomiting Stop: 08/13/22 17:33 Last Admin: 07/19/22 14:50 Dose: 4 mg Pantoprazole Sodium (Pantoprazole 40 Mg Tab) 40 mg PO [facility] Stop: 08/14/22 16:29 Last Admin: 07/20/22 08:37 Dose: 40 mg
[2022-07-20] MEDS: ACETAMINOPHEN 500 MG TAB PO PRN (15:20)
[2022-07-20] MEDS ORDERED: oxyCODONE HCL IR 5 MG TAB (IMMEDIATE RELEASE) PO STA (21:13)
[2022-07-21] MEDS: ONDANSETRON INJ 2 MG/ML 2 ML VIAL IV PRN (00:18)
[2022-07-21] MEDS: HEPARIN SOD 5,000 UNIT/0.5 ML VIAL SQ SCH ×2 (05:57→20:15)
[2022-07-21] MEDS: amLODIPine BESYLATE 5 MG TAB PO SCH (08:12)
[2022-07-21] MEDS: CLOPIDOGREL BISULFATE 75 MG TAB PO SCH (08:12)
[2022-07-21] MEDS: ASPIRIN 81 MG ECTAB PO SCH (08:12)
[2022-07-21] MEDS: LOSARTAN POTASSIUM 50 MG TAB PO SCH (08:12)
[2022-07-21] MEDS: carBAMazepine 200 MG TABLET PO SCH ×2 (08:12→20:15)
[2022-07-21] MEDS: PANTOprazole 40 MG TAB PO SCH (08:12)
[2022-07-21] MEDS: ATORVASTATIN 40 MG TAB PO SCH (08:12)
[2022-07-21] MEDS: ACETAMINOPHEN 500 MG TAB PO PRN (11:24)
--- NOTE | 2022-07-21 11:47 | Hospitalist Progress Note ---
Date of Service July 21, 2022 Assessment & Plan (1) Hypertensive emergency: Plan: GettingPresented with systolic blood pressure more than 220 on admission Received intravenous labetalol x2 of 10 mg Received losartan 50 mg and amlodipine 5 mg Blood pressure improved and today it is 155/71 Patient is symptomatically much better Blood pressure is better controlled Standing blood pressure seems to be elevated with dizziness Will not give any additional blood pressure medicine now Noted to have recent blood pressure on standing as of yesterday that is 07/17/2022 Blood pressure is controlled and seems to be in the lower side today at 109/72 Blood pressure remains stable with current medications Blood pressure remains elevated at times but otherwise stable Likely to be discharged to [facility] this afternoon Anxiety Noted to have severe anxiety We will start small dose of oral Zyprexa Ongoing severe dizziness with ambulation Likely secondary to cerebellar stroke Will try meclizine 25 mg every 6 hourly [id number] for a day Will continue physical therapy Until the dizziness is reasonably controlled she will be discharged PT recommended rehab and the patient is agreeable to go to rehab for short-term Dizziness is not much better-we will try Gabe Meclizine has been changed to as needed Dizziness and nausea are much better today Likely to be discharged to [facility] this afternoon Dizziness is improved but still persisting (2) Cerebellar stroke: Plan: Admit to PCU Patient presenting from home with reports of headache, dizziness, nausea, difficulty ambulating x 6 days In the ED, patient was found to be significantly hypertensive with BP 242/103 Patient received labetalol 10 mg IV x 2 doses with minimal improvement. Will give hydralazine 10 mg IV and losartan 50 mg p.o. (patient's home dose) --> some improvement in BP, will give another dose of hydralazine and give amlodipine 5mg now. Resume Losartan 50mg and Amlodipine 5mg tomorrow AM. PRN hydralazine SBP > 195 Head/Neck CTA: 1. Small age-indeterminate lacunar infarcts of the left cerebellar hemisphere measure up to approximately 1.4 cm. Additional age-indeterminate lacunar infarct of the right caudate nucleus, favored to be chronic. 2. Age-indeterminate occlusion of the distal left vertebral artery with areas of reconstitution noted within the left PICA. Findings are likely secondary to atherosclerotic vascular disease. An underlying dissection would be difficult to exclude. 3. 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 4. High-grade stenosis within the proximal right ICA. 5. Mild to moderate stenosis throughout the middle and posterior cerebral arteries. Brain MRI/MRA-small acute left cerebellar infarct measuring up to approximately 1.4 cm Echo-LV is normal in size, mild concentric LVH, focal thickening of the basal septum with no evidence of left ventricular outflow obstruction, septal motion is consistent with conduction abnormality, no regional wall motion abnormalities, EF 55 to 60%, grade 1 diastolic dysfunction, aortic valve sclerosis mild without significant aortic valve stenosis, interatrial septum is intact with no evidence of atrial septal defect and injection of contrast documented no interatrial shunt Neurology consult -Case discussed with Dr. Dexter via tiger text-appreciate input and recommendation Start Plavix 75mg, ASA 81mg, atorvastatin 40mg Denies any neurological symptoms Dizziness seems to be improving Has had physical therapy and did notice to have dizziness during the therapy Systolic blood pressure goes up to 170 with standing with dizziness Will need to go to short-term rehab for ongoing dizziness Will not go for any Gabe maneuver given the complexity of stenosis involving the neck arteries Remains stable (3) Lacunar stroke: (4) Carotid stenosis, right: Plan: Consult vascular re: high grade proximal right ICA stenosis Have outpatient vascular surgery evaluation the patient lives before Sunday Likely medical management Appreciate vascular surgery input and recommendation (5) Trigeminal neuralgia: Plan: Continue carbamazepine DVT PROPHYLAXIS SCDs Will add heparin subcu Discussed with the son and the patient Plan Likely discharge tomorrow Admission and Anticipated Discharge Date Admission Date: July 14, 2022 Subjective 07/15/2022 The patient was seen and examined in telemetry unit She has been feeling much better Dizziness has improved and the blood pressure seems to be controlled Denies any other neurological symptoms 07/16/2022 The patient was seen and examined in telemetry unit She has been feeling much better Only has minimal dizziness with ambulation and standing Will get orthostatic vitals Will start very small dose of Antivert as needed 07/17/2022 The patient was seen and examined in telemetry unit She complains to have severe dizziness with standing and ambulating Did not have any nausea no vomiting associated with it Could not participate in physical therapy 07/18/2022 The patient was seen and examined in telemetry unit She continues to have dizziness with ambulation and standing Has been getting physical therapy and recommended to go to rehab for short-term Has been getting meclizine routinely every 6 hourly with minimal improvement 07/19/2022 The patient was seen and examined in telemetry unit She is a little better but he still has significant dizziness with ambulation Rapid neck movements produced dizziness as well Denies any other significant symptoms 07/20/2022 The patient was seen and examined in telemetry unit She has been feeling a little better today and does not have significant dizziness with ambulation She feels that she could be discharged today She denies any other significant symptom 07/21/2022 The patient was seen and examined in telemetry unit She has been feeling much better today with weakness and has minimal dizziness with ambulation Her facial symptoms of numbness and tingling have disappeared She has noted to have high blood pressure of 180s systolic with some dizziness on standing lateral Seems very anxious Review of Systems Review of Systems: All systems reviewed and are unremarkable except as noted below Physical Exam Physical Exam: Lying in bed without any acute distress Constitutional: average body habitus; not ill appearing Eyes: PERRL, conjunctivae normal, anicteric sclerae ENMT: external ear and nose normal, oropharynx normal Neck: trachea midline, no thyromegaly Respiratory: no respiratory distress Auscultation: lungs clear to auscultation bilaterally Cardiovascular: Rate/Rhythm: regular rate and regular rhythm; not tachycardic Heart Sounds: normal S1 and normal S2; no murmur Extremities: no edema Gastrointestinal (Abdomen): Inspection/Auscultation: normal bowel sounds; abdomen not distended Percussion/Palpation: abdomen soft; abdomen nontender Musculoskeletal: No acute arthritis involving any joint Neurologic: normal touch/pain/proprioception and moves all extremities; no focal motor deficits Psychiatric: A+Ox3, euthymic affect Lymphatic: no cervical or axillary lymphadenopathy Results & Data Results & Data ([facility]) Vital Signs (Past 12 Hours) Vital Signs Temp Pulse Pulse Resp BP BP Pulse Ox 07/21/22 11:32 36.6 C 71 18 150/67 H 96 07/21/22 08:00 73 07/21/22 07:36 36.5 C 68 18 150/71 H 97 07/21/22 03:32 36.5 C 69 18 117/61 98 07/21/22 00:06 36.5 C 75 18 135/76 94 07/21/22 01:02 67 O2 Del Method 07/21/22 11:32 Room Air 07/21/22 08:00 07/21/22 07:36 Room Air 07/21/22 03:32 Room Air 07/21/22 00:06 Room Air 07/21/22 01:02 Medications Administered Current Inpatient Medications Acetaminophen (Acetaminophen 500 Mg Tab) 1,000 mg PO TID PRN PRN Reason: Pain Stop: 08/14/22 10:03 Last Admin: 07/21/22 11:24 Dose: 1,000 mg Amlodipine Besylate (Amlodipine Besylate 5 Mg Tab) 5 mg PO [facility] Stop: 08/14/22 08:59 Last Admin: 07/21/22 08:12 Dose: 5 mg Aspirin (Aspirin 81 Mg Ectab) 81 mg PO [facility] Stop: 08/14/22 08:59 Last Admin: 07/21/22 08:12 Dose: 81 mg Atorvastatin Calcium (Atorvastatin 40 Mg Tab) 40 mg PO [facility] Stop: 08/13/22 19:14 Last Admin: 07/21/22 08:12 Dose: 40 mg Carbamazepine (Carbamazepine 200 Mg Tablet) 200 mg PO BID [facility] Stop: 08/13/22 20:59 Last Admin: 07/21/22 08:12 Dose: 200 mg Clopidogrel Bisulfate (Clopidogrel Bisulfate 75 Mg Tab) 75 mg PO [facility] Stop: 08/14/22 11:59 Last Admin: 07/21/22 08:12 Dose: 75 mg Heparin Sodium (Porcine) (Heparin Sod 5,000 Unit/0.5 Ml Vial) 5,000 units SQ Q12H [facility] Stop: 08/17/22 17:59 Last Admin: 07/21/22 05:57 Dose: 5,000 units Hydralazine HCl (Hydralazine Hcl 20 Mg/Ml Vial) 5 mg IV Q6H PRN PRN Reason: HTN Stop: 08/13/22 18:44 Last Admin: 07/16/22 22:39 Dose: 5 mg Losartan Potassium ([facility] Potassium 50 Mg Tab) [facility] Stop: 08/14/22 08:59 Last Admin: 07/21/22 08:12 Dose: 50 mg Meclizine HCl (Meclizine Hcl 25 Mg Tab) 25 mg PO Q6H PRN PRN Reason: Dizziness or Vertigo Stop: 08/16/22 12:29 Last Admin: 07/20/22 08:37 Dose: 25 mg Olanzapine (Olanzapine 2.5 Mg Tab) [facility] Stop: 08/20/22 11:44 Ondansetron HCl (Ondansetron Inj 2 Mg/Ml 2 Ml Vial) 4 mg IV Q6H PRN PRN Reason: Nausea And Vomiting Stop: 08/13/22 17:33 Last Admin: 07/21/22 00:18 Dose: 4 mg Pantoprazole Sodium (Pantoprazole 40 Mg Tab) 40 mg PO [facility] Stop: 08/14/22 16:29 Last Admin: 07/21/22 08:12 Dose: 40 mg
[2022-07-21] MEDS: OLANZAPINE 2.5 MG TAB PO SCH (12:46)
--- NOTE | 2022-07-21 14:09 | CT Scan Report ---
CT head/brain wo con CLINICAL HISTORY: R/O Stroke Technique: Contiguous axial CT images of the head were acquired from the base of the skull to the kolton matthew without intravenous contrast administration. Images were viewed in brain, [facility] . Automated dose lowering techniques and/or adjustment according to patient size were utilized for this exam. Comparison: Comparison is made to CT head 07/16/2022 Findings: Areas of decreased attenuation are present in the periventricular and subcortical white matter bilate rally consistent with small vessel ischemic disease. Generalized cerebral atrophy with commensurate e nlargement of the ventricles, sulci, and cisterns is also present. There is no acute intracranial hem orrhage or evidence of acute territorial infarction. No shift of the midline structures, mass effect, or extra-axial abnormalities are shown. Atherosclerotic calcifications are present in the intracran ial segments of the internal carotid arteries. Previously noted right caudate lacunar infarct unchang ed. Left cerebellar infarct is again seen. No evidence of acute infarct. Imaged portions of the paranasal sinuses and mastoid air cells are clear. The orbits appear normal. There are no acute fractures of the calvaria or scalp swelling. Impression: No acute intracranial hemorrhage, no evidence of acute territorial infarction or other acute intracra nial disease process. ACT 112: Negative or not required by law. Electronically signed by: Isaías De Anda M.D. 07/21/2022 2:07 PM
[2022-07-22] MEDS: HEPARIN SOD 5,000 UNIT/0.5 ML VIAL SQ SCH ×2 (06:19→20:38)
[2022-07-22] MEDS: CLOPIDOGREL BISULFATE 75 MG TAB PO SCH (08:27)
[2022-07-22] MEDS: ASPIRIN 81 MG ECTAB PO SCH (08:27)
[2022-07-22] MEDS: ATORVASTATIN 40 MG TAB PO SCH (08:27)
[2022-07-22] MEDS: amLODIPine BESYLATE 5 MG TAB PO SCH (08:27)
[2022-07-22] MEDS: LOSARTAN POTASSIUM 50 MG TAB PO SCH (08:27)
[2022-07-22] MEDS: PANTOprazole 40 MG TAB PO SCH (08:27)
[2022-07-22] MEDS: carBAMazepine 200 MG TABLET PO SCH ×2 (08:27→20:43)
[2022-07-22] MEDS: OLANZAPINE 2.5 MG TAB PO SCH (08:28)
[2022-07-22 09:06] LABS: Basophils # (auto) 0.01 K/uL (0-0.2); Basophils % (auto) 0.2 %; Eosinophils # (auto) 0.09 K/uL (0-0.50); Eosinophils % (auto) 1.8 %; Hematocrit (blood only) 36.9 % (34.1-44.9); Hemoglobin 12.7 g/dl (12.0-16.0); Immature Granulocytes # (auto) 0.01 K/uL (0.00-0.02); Immature Granulocytes % (auto) 0.2 %; Lymphocytes # (auto) 2.57 K/uL (1.2-3.4); Mean Corpuscular Hemoglobin 32.2 pg (25.0-34.0); Mean Corpuscular Hgb Conc 34.4 g/dL (32.0-36.0); Mean Corpuscular Volume 93.4 fL (80.0-100.0); Mean Platelet Volume 9.4 fL (9.4-12.3); Monocytes # (auto) 0.29 K/uL (0.24-0.82); Monocytes % (auto) 5.6 %; Neutrophils # (auto) 2.17 K/uL (1.4-6.5); Neutrophils % (auto) 42.2 %; Platelet Count 181 K/uL (130-400); RDW Standard Deviation 44.6 fL (36.4-46.3); Red Blood Count 3.95 M/uL (3.93-5.22); White Blood Count 5.14 K/ul (4.8-10.8)
[2022-07-22 09:41] LABS: Calcium 8.8 mg/dl (8.5-10.1); Potassium 4.3 mmol/L (3.5-5.1)
[2022-07-22 09:47] LABS: Creatinine Clr Calc Pharmacy 42.4 ml/min; Est GFR (African American) 76.8 ml/min; Est GFR (Non-African American) 66.3 ml/min
--- NOTE | 2022-07-22 11:04 | Discharge Summary ---
Discharge Summary Date of Service July 22, 2022 Admission HPI Per Admitting Provider 86-year-old female with PMH HTN, dyslipidemia, carotid stenosis, LBBB, trigeminal neuralgia, and other problems listed below who presents to the ED for evaluation of headache, nausea, dizziness, difficulty ambulating. Patient reports that 6 days ago, she was sitting at her computer when she had sudden onset of dizziness and generalized weakness. Patient reports that she went to bed and fell asleep and whenever she woke up the next morning, the dizziness and generalized weakness persisted. The following day, patient also reports she developed a severe frontal headache that radiated around to the back of her head. She also has had associated nausea. Patient also reports some difficulty walking however no falls. Patient has been taking intermittent Advil for the headache. This morning, she took 2 full dose aspirin. Patient denies unilateral weakness, numbness, tingling. No facial droop, slurred speech, difficulty swallowing. Denies double and blurred vision. No chest pain or shortness of breath. Denies syncopal event. No other recent illnesses, fevers, chills. No abdominal pain, vomiting, diarrhea. Denies urinary symptoms. In the ED, patient is found to be significantly hypertensive with BP 242/103. Head and neck CTA shows small age-indeterminate lacunar infarcts of the left cerebellar hemisphere measure up to approximately 1.4 cm, Age-indeterminate occlusion of the distal left vertebral artery with areas of reconstitution noted within the left PICA. Findings are likely secondary to atherosclerotic vascular disease. An underlying dissection would be difficult to exclude. 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 High-grade stenosis within the proximal right ICA. Mild to moderate stenosis throughout the middle and posterior cerebral arteries. Patient was given IV labetalol 10 mg x 2 doses with minimal improvement in BP. Principal Dx & Hospital Course #1 = Principal Diagnosis Updated Medication List Medication Instructions Recorded Confirmed Type carbamazepine 200 mg tablet 200 mg PO BID 04/15/18 07/14/22 History fluticasone propionate 50 2 spray intranasal DAILY PRN 04/15/18 07/14/22 History mcg/actuation nasal Congestion spray,suspension (Flonase Allergy Relief) losartan 50 mg tablet 50 mg PO HS 07/14/22 07/14/22 History Hospital Stay Data Consultations 07/14/22 13:56 Consult Neurology Stat ED Decision to Admit Stat 07/14/22 15:16 Consult Neurology Routine Consult Vascular Surgery Routine Diagnostic Imagining Performed 07/14/22 10:29 CT head/brain wo con Stat 07/14/22 12:29 CT angio head w con Stat CT angio neck with con Stat 07/14/22 14:10 MR angio head wo con Urgent MRI Brain [MR brain wo/w con] Urgent 07/16/22 22:58 CT head/brain wo con Stat 07/21/22 12:51 CT head/brain wo con Urgent
--- NOTE | 2022-07-22 13:59 | Hospitalist Progress Note ---
Date of Service July 22, 2022 Assessment & Plan (1) Cerebellar stroke: Plan: Per Dr. Carepnter's notes with addendum: (1) Hypertensive emergency: Plan: GettingPresented with systolic blood pressure more than 220 on admission Received intravenous labetalol x2 of 10 mg Received losartan 50 mg and amlodipine 5 mg Blood pressure improved and today it is 155/71 Patient is symptomatically much better Blood pressure is better controlled Standing blood pressure seems to be elevated with dizziness Will not give any additional blood pressure medicine now Noted to have recent blood pressure on standing as of yesterday that is 07/17/2022 Blood pressure is controlled and seems to be in the lower side today at 109/72 Blood pressure remains stable with current medications Blood pressure remains elevated at times but otherwise stable 07/22 Blood pressure 152/77 Continue to monitor closely Anxiety Noted to have severe anxiety Improving Continue Zyprexa 2.5 mg in the morning Ongoing severe dizziness with ambulation Likely secondary to cerebellar stroke Will try meclizine 25 mg every 6 hourly [id number] for a day Will continue physical therapy Until the dizziness is reasonably controlled she will be discharged PT recommended rehab and the patient is agreeable to go to rehab for short-term Dizziness is not much better-we will try Gabe Meclizine has been changed to as needed Dizziness and nausea are much better today Likely to be discharged to [facility] this afternoon Dizziness is improved but still persisting 07/22 Dizziness improving Continue to monitor (2) Cerebellar stroke: Plan: Admit to PCU Patient presenting from home with reports of headache, dizziness, nausea, difficulty ambulating x 6 days In the ED, patient was found to be significantly hypertensive with BP 242/103 Patient received labetalol 10 mg IV x 2 doses with minimal improvement. Will give hydralazine 10 mg IV and losartan 50 mg p.o. (patient's home dose) --> some improvement in BP, will give another dose of hydralazine and give amlodipine 5mg now. Resume Losartan 50mg and Amlodipine 5mg tomorrow AM. PRN hydralazine SBP > 195 Head/Neck CTA: 1. Small age-indeterminate lacunar infarcts of the left cerebellar hemisphere measure up to approximately 1.4 cm. Additional age-indeterminate lacunar infarct of the right caudate nucleus, favored to be chronic. 2. Age-indeterminate occlusion of the distal left vertebral artery with areas of reconstitution noted within the left PICA. Findings are likely secondary to atherosclerotic vascular disease. An underlying dissection would be difficult to exclude. 3. 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 4. High-grade stenosis within the proximal right ICA. 5. Mild to moderate stenosis throughout the middle and posterior cerebral arteries. Brain MRI/MRA-small acute left cerebellar infarct measuring up to approximately 1.4 cm Echo-LV is normal in size, mild concentric LVH, focal thickening of the basal septum with no evidence of left ventricular outflow obstruction, septal motion is consistent with conduction abnormality, no regional wall motion abnormalities, EF 55 to 60%, grade 1 diastolic dysfunction, aortic valve sclerosis mild without significant aortic valve stenosis, interatrial septum is intact with no evidence of atrial septal defect and injection of contrast documented no interatrial shunt Neurology consult -Case discussed with Dr. Dexter via tiger text-appreciate input and recommendation Start Plavix 75mg, ASA 81mg, atorvastatin 40mg Denies any neurological symptoms Dizziness seems to be improving Has had physical therapy and did notice to have dizziness during the therapy Systolic blood pressure goes up to 170 with standing with dizziness Will need to go to short-term rehab for ongoing dizziness Will not go for any Gabe maneuver given the complexity of stenosis involving the neck arteries Remains stable 07/22 CT head: No acute changes Continue PT and OT evaluation Continue aspirin, Plavix, Lipitor (3) Lacunar stroke: (4) Carotid stenosis, right: Plan: Consult vascular re: high grade proximal right ICA stenosis 07/22 Continue medical management Follow-up with outpatient vascular surgery service (5) Trigeminal neuralgia: Plan: Continue carbamazepine DVT PROPHYLAXIS SCDs heparin subcu plan of care discussed with patient and her children in detail and at length all questions answered They are understanding, agreeable, comfortable with the plan of care Admission and Anticipated Discharge Date Admission Date: July 14, 2022 Subjective Follow-up for acute CVA, etc. Seen sitting at the bedside chair, comfortable, not in distress Patient's children at the bedside visiting Patient states that she feels much better today compared to yesterday But still had an episode of dizziness when she walked in her room and back to her chair No active dizziness on my exam No new neurologic deficits no chest pain, dyspnea, palpitations, dizziness No other symptoms Review of Systems Review of Systems: all noted and negative except for above Physical Exam Physical Exam: General- oriented x 3, not in distress, speaks in sentences with no effort or accessory muscle use Eyes- anicteric Neck- no JVD Lungs- clear breath sounds bilaterally, no rales/wheezes Heart- normal rate, regular rhythm; no murmurs Abdomen- normal bowel sounds, nondistended, soft, nontender Extremities- no pretibial edema, no calf tenderness Neuro- alert, oriented x 3; no gross focal neurologic deficits Skin- warm & dry Results & Data Results & Data ([facility]) Vital Signs (Past 12 Hours) Vital Signs Temp Pulse Resp BP BP Pulse Ox O2 Del Method 07/22/22 07:59 36.4 C L 68 18 152/72 H 96 Room Air 07/22/22 02:52 36.4 C L 70 16 147/75 H 98 Room Air all noted and reviewed including below
[2022-07-22] MEDS: ACETAMINOPHEN 500 MG TAB PO PRN (14:17)
[2022-07-23] MEDS: ONDANSETRON INJ 2 MG/ML 2 ML VIAL IV PRN ×2 (02:21→10:14)
[2022-07-23] MEDS: HEPARIN SOD 5,000 UNIT/0.5 ML VIAL SQ SCH ×2 (05:57→18:13)
[2022-07-23] MEDS: ATORVASTATIN 40 MG TAB PO SCH (10:17)
[2022-07-23] MEDS: LOSARTAN POTASSIUM 50 MG TAB PO SCH (10:17)
[2022-07-23] MEDS: PANTOprazole 40 MG TAB PO SCH (10:17)
[2022-07-23] MEDS: ASPIRIN 81 MG ECTAB PO SCH (10:17)
[2022-07-23] MEDS: carBAMazepine 200 MG TABLET PO SCH ×2 (10:17→22:14)
[2022-07-23] MEDS: amLODIPine BESYLATE 5 MG TAB PO SCH (10:17)
[2022-07-23] MEDS: CLOPIDOGREL BISULFATE 75 MG TAB PO SCH (10:17)
[2022-07-23] MEDS: OLANZAPINE 2.5 MG TAB PO SCH (10:17)
--- NOTE | 2022-07-23 11:37 | Neurology Progress Note ---
Date of Service July 23, 2022 Assessment & Plan (1) Cerebellar stroke: Plan Neurology Progress Note Assessment & Plan: Impression: pt with cerebellar ischemic stroke, showing good improvement and overall stable. Recommendations: -pt is improving as expected. it will take some time for pt to improve her symptoms. continue management as now. please see prior neurology recommendations. not much to add from neurology at this point. call again if new question. Dr. Duke De La Torre MD [facility] Neurology Subjective: Patient Seen and Examined. The notes from the last 24 hours were reviewed.pt doing much better. dizziness improved. Review of Systems: Per HPI and prior note. Physical Exam: HEENT: Normocephalic. No icter or congestion Neck: supple Extremities: no clubbing Skin: no rashes or lesions noted Neuro: Level of consciousness:Alert and appropriate Oriented:X 3 Cranial Nerves:face symmetric, PERRL, tongue midline, hearing intact, shrugs shoulders Strength:5/5 throughout Sensation to light touch: Intact bilaterally coord: no dysmetria. Meds: See chart I personally reviewed all of the medications Chart reviewed Total time spent: 50 minutes (this includes chart review); more than 50% time spent in counseling or coordination of care. Admission and Anticipated Discharge Date Admission Date: July 14, 2022 Results & Data ([facility]) Vital Signs (Past 12 Hours) Vital Signs Temp Pulse Pulse Pulse Resp BP Pulse Ox 07/23/22 08:00 69 07/23/22 07:53 36.5 C 72 16 167/81 H 98 07/23/22 03:15 36.6 C 73 16 154/69 H 97 07/23/22 01:47 74 O2 Del Method 07/23/22 08:00 07/23/22 07:53 Room Air 07/23/22 03:15 Room Air 07/23/22 01:47
[2022-07-23] MEDS: ACETAMINOPHEN 500 MG TAB PO PRN (14:32)
--- NOTE | 2022-07-23 16:00 | Hospitalist Progress Note ---
Date of Service July 23, 2022 Assessment & Plan (1) Cerebellar stroke: Plan: Per Dr. Carpenter's notes with addendum: (1) Hypertensive emergency: Plan: Blood pressure elevated likely secondary to ongoing dizziness and nausea Will give additional amlodipine 2.5 mg tonight Continue to monitor closely If persistent, may have to increase amlodipine to 7.5mg daily Anxiety Noted to have severe anxiety Improving Continue Zyprexa 2.5 mg in the morning Ongoing severe dizziness with ambulation secondary to cerebellar stroke Dizziness persistent with nausea, improved since admission Repeat CT head: No acute process Likely secondary to cerebellar stroke No further interventions per neurologist As needed meclizine, antiemetics (2) Cerebellar stroke: Plan: Admit to PCU Patient presenting from home with reports of headache, dizziness, nausea, difficulty ambulating x 6 days In the ED, patient was found to be significantly hypertensive with BP 242/103 Patient received labetalol 10 mg IV x 2 doses with minimal improvement. Will give hydralazine 10 mg IV and losartan 50 mg p.o. (patient's home dose) --> some improvement in BP, will give another dose of hydralazine and give amlodipine 5mg now. Resume Losartan 50mg and Amlodipine 5mg tomorrow AM. PRN hydralazine SBP > 195 Head/Neck CTA: 1. Small age-indeterminate lacunar infarcts of the left cerebellar hemisphere measure up to approximately 1.4 cm. Additional age-indeterminate lacunar infarct of the right caudate nucleus, favored to be chronic. 2. Age-indeterminate occlusion of the distal left vertebral artery with areas of reconstitution noted within the left PICA. Findings are likely secondary to atherosclerotic vascular disease. An underlying dissection would be difficult to exclude. 3. 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 4. High-grade stenosis within the proximal right ICA. 5. Mild to moderate stenosis throughout the middle and posterior cerebral arteries. Brain MRI/MRA-small acute left cerebellar infarct measuring up to approximately 1.4 cm Echo-LV is normal in size, mild concentric LVH, focal thickening of the basal septum with no evidence of left ventricular outflow obstruction, septal motion is consistent with conduction abnormality, no regional wall motion abnormalities, EF 55 to 60%, grade 1 diastolic dysfunction, aortic valve sclerosis mild without significant aortic valve stenosis, interatrial septum is intact with no evidence of atrial septal defect and injection of contrast documented no interatrial shunt Neurology consult -Case discussed with Dr. Dexter via tiger text-appreciate input and recommendation Start Plavix 75mg, ASA 81mg, atorvastatin 40mg Denies any neurological symptoms Dizziness seems to be improving Has had physical therapy and did notice to have dizziness during the therapy Systolic blood pressure goes up to 170 with standing with dizziness Will need to go to short-term rehab for ongoing dizziness Will not go for any Gabe maneuver given the complexity of stenosis involving the neck arteries Remains stable 07/23 CT head: No acute changes Continue PT and OT evaluation Continue aspirin, Plavix, Lipitor (3) Lacunar stroke: (4) Carotid stenosis, right: Plan: Consult vascular re: high grade proximal right ICA stenosis 07/23 Continue medical management Follow-up with outpatient vascular surgery service (5) Trigeminal neuralgia: Plan: Continue carbamazepine DVT PROPHYLAXIS SCDs heparin subcu plan of care discussed with patient in detail and at length all questions answered she is understanding, agreeable, comfortable with the plan of care Admission and Anticipated Discharge Date Admission Date: July 14, 2022 Subjective Follow-up for acute cerebellar stroke, etc. Seen resting in bed, not in distress States she still having some dizziness specially with getting up from bed Dizziness leads to some nausea No headache, no neurologic symptoms No other symptoms Review of Systems Review of Systems: all noted and negative except for above Physical Exam Physical Exam: General- oriented x 3, not in distress, speaks in sentences with no effort or accessory muscle use Eyes- anicteric Neck- no JVD Lungs- clear breath sounds bilaterally, no crackles or wheezing Heart- normal rate, regular rhythm; no murmurs Abdomen- normal bowel sounds, nondistended, soft, nontender Extremities- no pretibial edema, no calf tenderness Neuro- alert, oriented x 3; no gross focal neurologic deficits Skin- warm & dry Results & Data Results & Data ([facility]) Vital Signs (Past 12 Hours) Vital Signs Temp Pulse Pulse Resp BP Pulse Ox O2 Del Method 07/23/22 11:54 77 16 143/71 H 98 Room Air 07/23/22 08:00 69 07/23/22 07:53 36.5 C 72 16 167/81 H 98 Room Air all noted and reviewed including below
[2022-07-23] MEDS: MECLIZINE HCL 25 MG TAB PO PRN (16:22)
[2022-07-23] MEDS ORDERED: amLODIPine BESYLATE 5 MG TAB PO ONE (17:51)
[2022-07-24] MEDS: HEPARIN SOD 5,000 UNIT/0.5 ML VIAL SQ SCH ×2 (05:35→17:46)
[2022-07-24] MEDS: ASPIRIN 81 MG ECTAB PO SCH (08:28)
[2022-07-24] MEDS: OLANZAPINE 2.5 MG TAB PO SCH (08:28)
[2022-07-24] MEDS: CLOPIDOGREL BISULFATE 75 MG TAB PO SCH (08:28)
[2022-07-24] MEDS: amLODIPine BESYLATE 5 MG TAB PO SCH (08:28)
[2022-07-24] MEDS: LOSARTAN POTASSIUM 50 MG TAB PO SCH (08:28)
[2022-07-24] MEDS: carBAMazepine 200 MG TABLET PO SCH ×2 (08:28→20:04)
[2022-07-24] MEDS: PANTOprazole 40 MG TAB PO SCH (08:28)
[2022-07-24] MEDS: ATORVASTATIN 40 MG TAB PO SCH (08:28)
[2022-07-24] MEDS: MECLIZINE HCL 25 MG TAB PO PRN (13:40)
[2022-07-25] MEDS: ONDANSETRON INJ 2 MG/ML 2 ML VIAL IV PRN (03:08)
[2022-07-25] MEDS: HEPARIN SOD 5,000 UNIT/0.5 ML VIAL SQ SCH (06:16)
[2022-07-25] MEDS: MECLIZINE HCL 25 MG TAB PO PRN (06:16)
[2022-07-25] MEDS: carBAMazepine 200 MG TABLET PO SCH (07:50)
[2022-07-25] MEDS: ASPIRIN 81 MG ECTAB PO SCH (07:50)
[2022-07-25] MEDS: ATORVASTATIN 40 MG TAB PO SCH (07:51)
[2022-07-25] MEDS: OLANZAPINE 2.5 MG TAB PO SCH (07:51)
[2022-07-25] MEDS: CLOPIDOGREL BISULFATE 75 MG TAB PO SCH (07:51)
[2022-07-25] MEDS: PANTOprazole 40 MG TAB PO SCH (07:51)
[2022-07-25] MEDS: LOSARTAN POTASSIUM 50 MG TAB PO SCH (07:51)
[2022-07-25] MEDS: amLODIPine BESYLATE 5 MG TAB PO SCH (07:51)
--- NOTE | 2022-07-25 09:41 | Hospitalist Progress Note ---
Date of Service July 24, 2022 Assessment & Plan (1) Cerebellar stroke: Plan: (1) Hypertensive emergency: Plan: Blood pressure elevated likely secondary to ongoing dizziness and nausea Will give additional amlodipine 2.5 mg tonight Continue to monitor closely If persistent, may have to increase amlodipine to 7.5mg daily Anxiety Noted to have severe anxiety Improving Continue Zyprexa 2.5 mg in the morning Ongoing severe dizziness with ambulation secondary to cerebellar stroke Dizziness persistent with nausea, improved since admission Repeat CT head: No acute process Likely secondary to cerebellar stroke No further interventions per neurologist As needed meclizine, antiemetics 07/24 Reasonably stable with minimal dizziness with ambulation Plan to send her to [facility] this afternoon (2) Cerebellar stroke: Plan: Admit to PCU Patient presenting from home with reports of headache, dizziness, nausea, difficulty ambulating x 6 days In the ED, patient was found to be significantly hypertensive with BP 242/103 Patient received labetalol 10 mg IV x 2 doses with minimal improvement. Will give hydralazine 10 mg IV and losartan 50 mg p.o. (patient's home dose) --> some improvement in BP, will give another dose of hydralazine and give amlodipine 5mg now. Resume Losartan 50mg and Amlodipine 5mg tomorrow AM. PRN hydralazine SBP > 195 Head/Neck CTA: 1. Small age-indeterminate lacunar infarcts of the left cerebellar hemisphere measure up to approximately 1.4 cm. Additional age-indeterminate lacunar infarct of the right caudate nucleus, favored to be chronic. 2. Age-indeterminate occlusion of the distal left vertebral artery with areas of reconstitution noted within the left PICA. Findings are likely secondary to atherosclerotic vascular disease. An underlying dissection would be difficult to exclude. 3. 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 4. High-grade stenosis within the proximal right ICA. 5. Mild to moderate stenosis throughout the middle and posterior cerebral arteries. Brain MRI/MRA-small acute left cerebellar infarct measuring up to approximately 1.4 cm Echo-LV is normal in size, mild concentric LVH, focal thickening of the basal septum with no evidence of left ventricular outflow obstruction, septal motion is consistent with conduction abnormality, no regional wall motion abnormalities, EF 55 to 60%, grade 1 diastolic dysfunction, aortic valve sclerosis mild without significant aortic valve stenosis, interatrial septum is intact with no evidence of atrial septal defect and injection of contrast documented no interatrial shunt Neurology consult -Case discussed with Dr. Dexter via tiger text-appreciate input and recommendation Start Plavix 75mg, ASA 81mg, atorvastatin 40mg Denies any neurological symptoms Dizziness seems to be improving Has had physical therapy and did notice to have dizziness during the therapy Systolic blood pressure goes up to 170 with standing with dizziness Will need to go to short-term rehab for ongoing dizziness Will not go for any Gabe maneuver given the complexity of stenosis involving the neck arteries Remains stable and ready to be discharged to [facility] 07/23 CT head: No acute changes Continue PT and OT evaluation Continue aspirin, Plavix, Lipitor (3) Lacunar stroke: (4) Carotid stenosis, right: Plan: Consult vascular re: high grade proximal right ICA stenosis 07/23 Continue medical management Follow-up with outpatient vascular surgery service (5) Trigeminal neuralgia: Plan: Continue carbamazepine DVT PROPHYLAXIS SCDs heparin subcu plan of care discussed with patient in detail and at length all questions answered she is understanding, agreeable, comfortable with the plan of care She became very nauseous and vomited couple of times while she was stooping down in the restroom That transfer was canceled later in the afternoon Admission and Anticipated Discharge Date Admission Date: July 14, 2022 Subjective 07/24/2022 The patient was seen and examined in telemetry unit She has been feeling much better with minimal dizziness with ambulation Ready to be discharged to [facility] this afternoon Review of Systems Review of Systems: All systems reviewed and are unremarkable except as noted below Physical Exam Physical Exam: Lying in bed without any acute distress Constitutional: average body habitus; not ill appearing Eyes: PERRL, conjunctivae normal, anicteric sclerae ENMT: external ear and nose normal, oropharynx normal Neck: trachea midline, no thyromegaly Respiratory: no respiratory distress Auscultation: lungs clear to auscult ation bilaterally Cardiovascular: Rate/Rhythm: regular rate and regular rhythm; not tachycardic Heart Sounds: normal S1 and normal S2; no murmur Extremities: no edema Gastrointestinal (Abdomen): Inspection/Auscultation: normal bowel sounds; abdomen not distended Percussion/Palpation: abdomen soft; abdomen nontender Musculoskeletal: No acute arthritis in any joint Neurologic: normal touch/pain/proprioception and moves all extremities; no focal motor deficits Psychiatric: A+Ox3, euthymic affect Lymphatic: no cervical or axillary lymphadenopathy Results & Data Results & Data ([facility]) Vital Signs (Past 12 Hours) Vital Signs Temp Pulse Pulse Resp BP Pulse Ox O2 Del Method 07/25/22 08:00 71 07/25/22 07:30 36.4 C L 74 18 192/78 H 98 Room Air 07/25/22 03:57 36.3 C L 76 18 156/78 H 98 Room Air 07/25/22 00:08 36.3 C L 65 18 116/69 97 Room Air
--- NOTE | 2022-07-25 09:54 | Hospitalist Progress Note ---
Date of Service July 25, 2022 Assessment & Plan (1) Cerebellar stroke: Plan: (1) Hypertensive emergency: Plan: Blood pressure elevated likely secondary to ongoing dizziness and nausea Will give additional amlodipine 2.5 mg tonight Continue to monitor closely If persistent, may have to increase amlodipine to 7.5mg daily Anxiety Noted to have severe anxiety Improving Continue Zyprexa 2.5 mg in the morning Remains anxious this morning but during my examination she was improving Ongoing severe dizziness with ambulation secondary to cerebellar stroke Was advised to take precautions to avoid dizziness Dizziness persistent with nausea, improved since admission Repeat CT head: No acute process Likely secondary to cerebellar stroke No further interventions per neurologist As needed meclizine, antiemetics 07/24 Reasonably stable with minimal dizziness with ambulation Plan to send her to [facility] this afternoon 07/25 Remains stable with minimal dizziness in the morning Agreeable to be discharged to [facility] this afternoon (2) Cerebellar stroke: Plan: Admit to PCU Patient presenting from home with reports of headache, dizziness, nausea, difficulty ambulating x 6 days In the ED, patient was found to be significantly hypertensive with BP 242/103 Patient received labetalol 10 mg IV x 2 doses with minimal improvement. Will give hydralazine 10 mg IV and losartan 50 mg p.o. (patient's home dose) --> some improvement in BP, will give another dose of hydralazine and give amlodipine 5mg now. Resume Losartan 50mg and Amlodipine 5mg tomorrow AM. PRN hydralazine SBP > 195 Head/Neck CTA: 1. Small age-indeterminate lacunar infarcts of the left cerebellar hemisphere measure up to approximately 1.4 cm. Additional age-indeterminate lacunar infarct of the right caudate nucleus, favored to be chronic. 2. Age-indeterminate occlusion of the distal left vertebral artery with areas of reconstitution noted within the left PICA. Findings are likely secondary to atherosclerotic vascular disease. An underlying dissection would be difficult to exclude. 3. 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 4. High-grade stenosis within the proximal right ICA. 5. Mild to moderate stenosis throughout the middle and posterior cerebral arteries. Brain MRI/MRA-small acute left cerebellar infarct measuring up to approximately 1.4 cm Echo-LV is normal in size, mild concentric LVH, focal thickening of the basal septum with no evidence of left ventricular outflow obstruction, septal motion is consistent with conduction abnormality, no regional wall motion abnormalities, EF 55 to 60%, grade 1 diastolic dysfunction, aortic valve sclerosis mild without significant aortic valve stenosis, interatrial septum is intact with no evidence of atrial septal defect and injection of contrast documented no interatrial shunt Neurology consult -Case discussed with Dr. Dexter via tiger text-appreciate input and recommendation Start Plavix 75mg, ASA 81mg, atorvastatin 40mg Denies any neurological symptoms Dizziness seems to be improving Has had physical therapy and did notice to have dizziness during the therapy Systolic blood pressure goes up to 170 with standing with dizziness Will need to go to short-term rehab for ongoing dizziness Will not go for any Gabe maneuver given the complexity of stenosis involving the neck arteries She has to take precaution to decrease her symptoms of dizziness given the history of a stroke (3) Lacunar stroke: (4) Carotid stenosis, right: Plan: Consult vascular re: high grade proximal right ICA stenosis 07/23 Continue medical management Follow-up with outpatient vascular surgery service (5) Trigeminal neuralgia: Plan: Continue carbamazepine DVT PROPHYLAXIS SCDs heparin subcu Discussed with the patient, her son and her sister in detail Explained the symptomatology of dizziness associated with cerebellar stroke She was strongly advised to take precaution to avoid severe dizziness Will continue meclizine as needed for dizziness She will be discharged to [facility] this afternoon Admission and Anticipated Discharge Date Admission Date: July 14, 2022 Subjective 07/24/2022 The patient was seen and examined in telemetry unit She has been feeling much better with minimal dizziness with ambulation Ready to be discharged to [facility] this afternoon 07/25/2022 The patient was seen and examined in telemetry unit She complains to have minimal dizziness but the blood pressure was high at 192/78 Denies any other symptom associated with it She was explained how to take precaution to avoid dizziness with this kind of a stroke She will be cautious Review of Systems Review of Systems: All systems reviewed and are unremarkable except as noted below Physical Exam Physical Exam: Lying in bed without any acute distress Constitutional: average body habitus; not ill appearing Eyes: PERRL, conjunctivae normal, anicteric sclerae ENMT: external ear and nose normal, oropharynx normal Neck: trachea midline, no thyromegaly Respiratory: no respiratory distress Auscultation: lungs clear to auscultation bilaterally Cardiovascular: Rate/Rhythm: regular rate and regular rhythm; not tachycardic Heart Sounds: normal S1 and normal S2; no murmur Extremities: no edema Gastrointestinal (Abdomen): Inspection/Auscultation: normal bowel sounds; abdomen not distended Percussion/Palpation: abdomen soft; abdomen nontender Musculoskeletal: No acute arthritis involving any joint Neurologic: normal touch/pain/proprioception and moves all extremities; no focal motor deficits Psychiatric: A+Ox3, euthymic affect Lymphatic: no cervical or axillary lymphadenopathy Results & Data Results & Data ([facility]) Vital Signs (Past 12 Hours) Vital Signs Temp Pulse Pulse Resp BP Pulse Ox O2 Del Method 07/25/22 08:00 71 07/25/22 07:30 36.4 C L 74 18 192/78 H 98 Room Air 07/25/22 03:57 36.3 C L 76 18 156/78 H 98 Room Air 07/25/22 00:08 36.3 C L 65 18 116/69 97 Room Air Medications Administered Current Inpatient Medications Acetaminophen (Acetaminophen 500 Mg Tab) 1,000 mg PO TID PRN PRN Reason: Pain Stop: 08/14/22 10:03 Last Admin: 07/23/22 14:32 Dose: 1,000 mg Amlodipine Besylate (Amlodipine Besylate 5 Mg Tab) 5 mg PO QAM [facility] Stop: 08/14/22 08:59 Last Admin: 07/25/22 07:51 Dose: 5 mg Aspirin (Aspirin 81 Mg Ectab) 81 mg PO DAILY [facility] Stop: 08/14/22 08:59 Last Admin: 07/25/22 07:50 Dose: 81 mg Atorvastatin Calcium (Atorvastatin 40 Mg Tab) 40 mg PO QAM [facility] Stop: 08/13/22 19:14 Last Admin: 07/25/22 07:51 Dose: 40 mg Carbamazepine (Carbamazepine 200 Mg Tablet) 200 mg PO BID [facility] Stop: 08/13/22 20:59 Last Admin: 07/25/22 07:50 Dose: 200 mg Clopidogrel Bisulfate (Clopidogrel Bisulfate 75 Mg Tab) 75 mg PO QAM [facility] Stop: 08/14/22 11:59 Last Admin: 07/25/22 07:51 Dose: 75 mg Heparin Sodium (Porcine) (Heparin Sod 5,000 Unit/0.5 Ml Vial) 5,000 units SQ Q12H [facility] Stop: 08/17/22 17:59 Last Admin: 07/25/22 06:16 Dose: 5,000 units Hydralazine HCl (Hydralazine Hcl 20 Mg/Ml Vial) 5 mg IV Q6H PRN PRN Reason: HTN Stop: 08/13/22 18:44 Last Admin: 07/16/22 22:39 Dose: 5 mg Losartan Potassium (Losartan Potassium 50 Mg Tab) 50 mg PO [facility] Stop: 08/14/22 08:59 Last Admin: 07/25/22 07:51 Dose: 50 mg Meclizine HCl (Meclizine Hcl 25 Mg Tab) 25 mg PO Q6H PRN PRN Reason: Dizziness or Vertigo Stop: 08/16/22 12:29 Last Admin: 07/25/22 06:16 Dose: 25 mg Olanzapine (Olanzapine 2.5 Mg Tab) 2.5 mg PO [facility] Stop: 08/20/22 11:44 Last Admin: 07/25/22 07:51 Dose: 2.5 mg Ondansetron HCl (Ondansetron Inj 2 Mg/Ml 2 Ml Vial) 4 mg IV Q6H PRN PRN Reason: Nausea And Vomiting Stop: 08/13/22 17:33 Last Admin: 07/25/22 03:08 Dose: 4 mg Pantoprazole Sodium (Pantoprazole 40 Mg Tab) 40 mg PO [facility] Stop: 08/14/22 16:29 Last Admin: 07/25/22 07:51 Dose: 40 mg
--- NOTE | 2022-07-25 16:51 | Discharge Summary ---
Date of Service July 25, 2022 Admission HPI Per Admitting Provider Chief Complaint: Headache, nausea, dizziness, difficulty ambulating Primary Care Provider: Sander Dumont MD 86-year-old female with PMH HTN, dyslipidemia, carotid stenosis, LBBB, trigeminal neuralgia, and other problems listed below who presents to the ED for evaluation of headache, nausea, dizziness, difficulty ambulating. Patient reports that 6 days ago, she was sitting at her computer when she had sudden onset of dizziness and generalized weakness. Patient reports that she went to bed and fell asleep and whenever she woke up the next morning, the dizziness and generalized weakness persisted. The following day, patient also reports she developed a severe frontal headache that radiated around to the back of her head. She also has had associated nausea. Patient also reports some difficulty walking however no falls. Patient has been taking intermittent Advil for the headache. This morning, she took 2 full dose aspirin. Patient denies unilateral weakness, numbness, tingling. No facial droop, slurred speech, difficulty swallowing. Denies double and blurred vision. No chest pain or shortness of breath. Denies syncopal event. No other recent illnesses, fevers, chills. No abdominal pain, vomiting, diarrhea. Denies urinary symptoms. In the ED, patient is found to be significantly hypertensive with BP 242/103. Head and neck CTA showssmall age-indeterminate lacunar infarcts of the left cerebellar hemisphere measure up to approximately 1.4 cm, Age-indeterminate occlusion of the distal left vertebral artery with areas of reconstitution noted within the left PICA. Findings are likely secondary to atherosclerotic vascular disease. An underlying dissection would be difficult to exclude. 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 High-grade stenosis within the proximal right ICA. Mild to moderate stenosis throughout the middle and posterior cerebral arteries.Patient was given IV labetalol 10 mg x 2 doses with minimal improvement in BP. Admission Exam Per Admitting Provider Constitutional: WD/WN, vitals as above Eyes: PERRL, conjunctivae normal, anicteric sclerae ENMT: external ear and nose normal, oropharynx normal Respiratory: normal respiratory effort, lungs clear to auscultation Cardiovascular: Rate/Rhythm: regular rate and regular rhythm Vessels: normal peripheral pulses Extremities: no edema Gastrointestinal (Abdomen): normal bowel sounds, soft, nontender, no hepatosplenomegaly Musculoskeletal: no cyanosis or clubbing, extremities motor strength 5/5 Skin: no rashes, warm and dry Neurologic: moves all extremities Speech / Cognition: normal speech Cranial Nerves: PERRL, normal accommodation and EOM intact bilaterally; + abnormal facial strength (mild left mouth droop) Coordination: + abnormal [id number] test (mild ataxia LLE); normal [id number] test Psychiatric: A+Ox3, euthymic affect Principal Diagnosis ACUTE CEREBELLAR STROKE RIGHT ICA STENOSIS HYPERTENSIVE EMERGENCY Discharge Exam Lying in bed without any acute distress Constitutional average body habitus; not ill appearing Eyes PERRL, conjunctivae normal, anicteric sclerae ENMT external ear and nose normal, oropharynx normal Neck trachea midline, no thyromegaly Respiratory no respiratory distress Auscultation: lungs clear to auscultation bilaterally Cardiovascular Rate/Rhythm: regular rate and regular rhythm; not tachycardic Heart Sounds: normal S1 and normal S2; no murmur Extremities: no edema Gastrointestinal (Abdomen) Inspection/Auscultation: normal bowel sounds; abdomen not distended Percussion/Palpation: abdomen soft; abdomen nontender Neurologic normal touch/pain/proprioception and moves all extremities; no focal motor deficits Psychiatric A+Ox3, euthymic affect Lymphatic no cervical or axillary lymphadenopathy Discharge Data Allergies Allergy/AdvReac Type Severity Reaction Status Date / Time amoxicillin [From Augmentin] Allergy Intermediate HIVES/PASSED Verified 07/14/22 14:59 OUT cephalexin [From Keflex] Allergy Intermediate Hives Verified 07/14/22 14:59 clavulanic acid Allergy Intermediate HIVES/PASSED Verified 07/14/22 14:59 [From Augmentin] OUT Penicillins Allergy Intermediate Hives Verified 07/14/22 14:59 Consultations 07/14/22 13:56 Consult Neurology Stat ED Decision to Admit Stat 07/14/22 15:16 Consult Neurology Routine Consult Vascular Surgery Routine Ordered Studies 07/14/22 10:29 CT head/brain wo con Stat 07/14/22 12:29 CT angio head w con Stat CT angio neck with con Stat 07/14/22 14:10 MR angio head wo con Urgent MRI Brain [MR brain wo/w con] Urgent 07/16/22 22:58 CT head/brain wo con Stat 07/21/22 12:51 CT head/brain wo con Urgent Hospital Course (1) Cerebellar stroke: (1) Hypertensive emergency: Plan: Blood pressure elevated likely secondary to ongoing dizziness and nausea Will give additional amlodipine 2.5 mg tonight Continue to monitor closely If persistent, may have to increase amlodipine to 7.5mg daily Anxiety Noted to have severe anxiety Improving Continue Zyprexa 2.5 mg in the morning Remains anxious this morning but during my examination she was improving Ongoing severe dizziness with ambulation secondary to cerebellar stroke Was advised to take precautions to avoid dizziness Dizziness persistent with nausea, improved since admission Repeat CT head: No acute process Likely secondary to cerebellar stroke No further interventions per neurologist As needed meclizine, antiemetics 07/24 Reasonably stable with minimal dizziness with ambulation Plan to send her to [facility] this afternoon 07/25 Remains stable with minimal dizziness in the morning Agreeable to be discharged to [facility] this afternoon (2) Cerebellar stroke: Plan: Admit to PCU Patient presenting from home with reports of headache, dizziness, nausea, difficulty ambulating x 6 days In the ED, patient was found to be significantly hypertensive with BP 242/103 Patient received labetalol 10 mg IV x 2 doses with minimal improvement. Will give hydralazine 10 mg IV and losartan 50 mg p.o. (patient's home dose) --> some improvement in BP, will give another dose of hydralazine and give amlodipine 5mg now. Resume Losartan 50mg and Amlodipine 5mg tomorrow AM. PRN hydralazine SBP > 195 Head/Neck CTA: 1. Small age-indeterminate lacunar infarcts of the left cerebellar hemisphere measure up to approximately 1.4 cm. Additional age-indeterminate lacunar infarct of the right caudate nucleus, favored to be chronic. 2. Age-indeterminate occlusion of the distal left vertebral artery with areas of reconstitution noted within the left PICA. Findings are likely secondary to atherosclerotic vascular disease. An underlying dissection would be difficult to exclude. 3. 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 4. High-grade stenosis within the proximal right ICA. 5. Mild to moderate stenosis throughout the middle and posterior cerebral arteries. Brain MRI/MRA-small acute left cerebellar infarct measuring up to approximately 1.4 cm Echo-LV is normal in size, mild concentric LVH, focal thickening of the basal septum with no evidence of left ventricular outflow obstruction, septal motion is consistent with conduction abnormality, no regional wall motion abnormalities, EF 55 to 60%, grade 1 diastolic dysfunction, aortic valve sclerosis mild without significant aortic valve stenosis, interatrial septum is intact with no evidence of atrial septal defect and injection of contrast documented no interatrial shunt Neurology consult -Case discussed with Dr. Dexter via tiger text-appreciate input and recommendation Start Plavix 75mg, ASA 81mg, atorvastatin 40mg Denies any neurological symptoms Dizziness seems to be improving Has had physical therapy and did notice to have dizziness during the therapy Systolic blood pressure goes up to 170 with standing with dizziness Will need to go to short-term rehab for ongoing dizziness Will not go for any Gabe maneuver given the complexity of stenosis involving the neck arteries She has to take precaution to decrease her symptoms of dizziness given the history of a stroke (3) Lacunar stroke: (4) Carotid stenosis, right: Plan: Consult vascular re: high grade proximal right ICA stenosis 07/23 Continue medical management Follow-up with outpatient vascular surgery service (5) Trigeminal neuralgia: Plan: Continue carbamazepine DVT PROPHYLAXIS SCDs heparin subcu Discussed with the patient, her son and her sister in detail Explained the symptomatology of dizziness associated with cerebellar stroke She was strongly advised to take precaution to avoid severe dizziness Will continue meclizine as needed for dizziness She will be discharged to [facility] this afternoon Total Time Total Time Spent Total Time Spent (In Minutes): 45 minutes Discharge Plan Discharge Items Patient Disposition: Transfer Inpatient Rehab Fac Reason For Visit: HYPERTENSIVE EMERGENCY, CVA Discharge Diagnosis: ACUTE CEREBELLAR STROKE RIGHT ICA STENOSIS HYPERTENSIVE EMERGENCY Condition on Discharge: Fair Activity: As commented below Activity Comment: ALWAYS WITH ASSISTANCE, FALL PRECAUTIONS, PT/OT Lifting: Wait until after follow-up appointment Exercise/Sports: Wait until after follow-up appointment Non-emergency contact: Primary Care Provider Call non-emergency contact if: you have any medication questions, your symptoms worsen, your pain is not controlled, your pain is worsening and your pain is concerning for you Follow-up/Referrals: Dillon Dexter MD [Physician] - 08/10/22 3:45 pm (08/10/22 @ 3:[address] Dexter) Renato Arellano MD [Physician] - Sander Dumont MD [Primary Care Provider] - Diet: Heart Healthy Diet Texture: Easy to Chew Addtl Attending Provider Instructions: PLEASE REFER TO YOUR NEW MEDICATION LIST AND FOLLOW INSTRUCTIONS CAREFULLY. YOUR NEW MEDICATIONS INCLUDE: PLAVIX ASPIRIN ATORVASTATIN AMLODIPINE PROTONIX ZYPREXA PLEASE CALL YOUR PRIMARY CARE PHYSICIAN OR RETURN TO THE ER IF WITH WORSENING OF SYMPTOMS, INCLUDING STROKE-LIKE SYMPTOMS, HEADACHE, DIZZINESS, CHEST PAIN, SHORTNESS OF BREATH, NAUSEA/VOMITING, ETC FOLLOW UP WITH PRIMARY CARE PHYSICIAN 1 WEEK POST DISCHARGE. FOLLOW UP WITH NEUROLOGIST DR. DEXTER IN 3-4 W[address]KS [address] V[address]ULAR SURGE[address] ARELLANO IN 4 WEEKS. Pending Studies at Discharge: No Stand-Alone Forms: My [facility], Medications to Prevent Stroke Skilled Items Patient informed of condition?: Yes DNR: No Discharge Level of Care: Acute rehab Communicable Disease: No Discharge Prognosis: Stable Lines: None Urinary Catheter: No Medications and DC Order Prescriptions: New atorvastatin 40 mg Tablet 40 mg PO QAM 30 Days Qty: 30 2RF clopidogrel 75 mg Tablet 75 mg PO QAM 30 Days Qty: 30 2RF amlodipine [Norvasc] 5 mg Tablet 5 mg PO QAM 30 Days Qty: 30 2RF olanzapine 2.5 mg Tablet 2.5 mg PO QAM 30 Days Qty: 30 0RF aspirin 81 mg Tablet,Delayed Release (Dr/Ec) 81 mg PO DAILY 30 Days Qty: 30 2RF meclizine 25 mg Tablet 25 mg PO Q6H PRN (Reason: dizziness) Qty: 20 0RF pantoprazole 40 mg Tablet,Delayed Release (Dr/Ec) 40 mg PO QAM 30 Days Qty: 30 0RF Continued carbamazepine 200 mg Tablet 200 mg PO BID Rx Instructions: PER EXT MED HX TID, PER PT "ONLY BID". fluticasone propionate [Flonase Allergy Relief] 50 mcg/actuation [place],Suspension 2 spray INTRANASAL DAILY PRN (Reason: Congestion) Changed losartan 50 mg tablet 50 mg PO QAM 30 Days Qty: 30 0RF Discharge Orders: Discharge Order (Routine); Ordered 07/25/22 Ordered By: Saul Carpenter Admission Data Admit Date/Time: 07/14/22 16:32 Attending Provider: Saul Carpenter Admit Provider: Saul Carpenter Primary Care Provider: Sander Dumont Other Providers: Dillon Dexter ; Renato Arellano ; Saul Carpenter ; [facility] ; Kei Carvalho Other Interventions: Discharge Summary Assessment (RN) Last Done: 07/25/22 13:20
== END 2022-07-25 16:40 | DRG 65 ==
LOC: ED 10:15 → SUATTDRO 16:32 → 2S 16:32